=== PATIENT | female | born 1995 | race Caucasian/White ===

== ENCOUNTER 2016-06-14 16:41 | Emergency (ER) | payer SELFPAY ==
--- NOTE | 2016-06-14 18:03 | ER Document Report ---
ED Medical Screen (RME) - General Chief Complaint: Drug Abuse Stated Complaint: POSSIBLE DETOX Time seen by provider: 18:00 Mode of Arrival: Ambulatory Information source: Patient TRAVEL OUTSIDE OF THE [place] IN LAST 30 DAYS: No - HPI Patient complains to provider of: DETOX FROM XANAX Onset: Yesterday - LAST DOSE OF XANAX Onset/Duration: Sudden Quality of pain: No pain Severity: None Pain Level: Denies Associated Symptoms: None Exacerbated by: Denies Relieved by: Denies Similar symptoms previously: Yes Recently seen / treated by doctor: No - Related Data Smoking: Cigarettes Frequency of alcohol use: Occasional Drug Abuse: Marijuana Allergies/Adverse Reactions: No Known Allergies Allergy (Verified 06/14/16 17:32) Past Medical History - Social History Chew tobacco use (# tins/day): Yes Pulmonary Medical History: Denies: Hx Asthma, Hx Bronchitis, Hx COPD, Hx Pneumonia Neurological Medical History: Denies: Hx Cerebrovascular Accident, Hx Migraine, Hx Seizures Endocrine Medical History: Denies: Hx Diabetes Mellitus Type 1, Hx Diabetes Mellitus Type 2, Hx Graves' Disease Renal/ Medical History: Denies: Hx End Stage Renal Disease, Hx Kidney Stones, Hx Ovarian Cysts, Hx Peritoneal Dialysis, Hx Pelvic Inflammatory Disease Malignancy Medical History: Denies: Hx Breast Cancer, Hx Cervical Cancer, Hx Leukemia, Hx Liver Cancer, Hx Lung Cancer GI Medical History: Denies: Hx Diverticulitis, Hx Gastritis, Hx Gastroesophageal Reflux Disease, Hx Hepatitis, Hx Hiatal Hernia Musculoskeltal Medical History: Denies Hx Multiple Sclerosis, Denies Hx Muscle Weakness, Denies Hx Musculoskeletal Deformity Psychiatric Medical History: Denies: Hx Attention Deficit Hyperactivity Disorder, Hx Bipolar Disorder, Hx Borderline Personality Disorder, Hx Depression Infectious Medical History: Denies: Hx Hepatitis Past Surgical History: Reports: Hx Oral Surgery - wisdom, Hx Tonsillectomy - Immunizations Immunizations up to date: Yes Hx Diphtheria, Pertussis, Tetanus Vaccination: Yes Physical Exam - Vital signs Vitals: Temp Pulse Resp BP Pulse Ox 98.0 F 78 16 139/65 H 99 06/14/16 16:51 06/14/16 16:51 06/14/16 16:51 06/14/16 16:51 06/14/16 16:51 Course - Vital Signs Vital signs: Temp Pulse Resp BP Pulse Ox 98.0 F 78 16 139/65 H 99 06/14/16 16:51 06/14/16 16:51 06/14/16 16:51 06/14/16 16:51 06/14/16 16:51
[2016-06-14 18:32] LABS: ABSOLUTE EOSINOPHILS # (AUTO) 0.3 10^3/uL (0.0-0.6); ABSOLUTE LYMPHOCYTES (AUTO) 1.7 10^3/uL (0.5-4.7); ABSOLUTE MONOCYTES (AUTO) 0.8 10^3/uL (0.1-1.4); ABSOLUTE NEUT (AUTO) 4.9 10^3/uL (1.7-8.2); BASOPHILS % (AUTO) 0.3 % (0-2); EOSINOPHILS % (AUTO) 3.9 % (0-6); HEMATOCRIT 38.5 % (36.0-47.0); HGB HCT DIFFERENCE 0.5; LYMPHOCYTES % (AUTO) 22.5 % (13-45); MEAN CORPUSCULAR HEMOGLOBIN 27.3 pg (27.0-33.4); MEAN CORPUSCULAR HGB CONC 33.7 g/dL (32.0-36.0); MEAN CORPUSCULAR VOLUME 81 fl (80-97); MONOCYTES % (AUTO) 10.1 % (3-13); RED BLOOD COUNT 4.75 10^6/uL (3.72-5.28); RED CELL DISTRIBUTION WIDTH 15.1 % (11.5-14.0); SEGMENTED NEUTROPHILS % (AUTO) 63.2 % (42-78); WHITE BLOOD COUNT 7.7 10^3/uL (4.0-10.5)
[2016-06-14 18:59] LABS: ALANINE AMINOTRANSFERASE 39 U/L (9-52); ALBUMIN 4.2 g/dL (3.5-5.0); ALKALINE PHOSPHATASE 74 U/L (38-126); ANION GAP 11 (5-19); ASPARTATE AMINO TRANSFERASE 21 U/L (14-36); BILIRUBIN,TOTAL 0.8 mg/dL (0.2-1.3); BLOOD UREA NITROGEN 8 mg/dL (7-20); CALCIUM 9.5 mg/dL (8.4-10.2); CARBON DIOXIDE 27 mmol/L (22-30); CHLORIDE 104 mmol/L (98-107); CREATININE RESULT 0.74 mg/dL (0.52-1.25); GLUCOSE 83 mg/dL (75-110); POTASSIUM 3.9 mmol/L (3.6-5.0); SODIUM 142.1 mmol/L (137-145); TOTAL PROTEIN 7.5 g/dL (6.3-8.2)
[2016-06-14 19:01] LABS: ALCOHOL < 10 mg/dL (NONE DETECTED)
--- NOTE | 2016-06-14 19:34 | ER Document Report ---
ED Substance Abuse / Acc. OD - General Chief Complaint: Drug Abuse Stated Complaint: POSSIBLE DETOX Mode of Arrival: Ambulatory Notes: Patient says that she's been taking large regular doses of Xanax for the past year. During the past month she's been taking about 15 of the 2 mg Xanax daily. She wants to stop taking the Xanax and yesterday was the last that she has taken of the medication. She says that something happened that made her realize that she had to stop. Thus far, her only symptoms are being extremely emotional and labile and having shakes, but no loss of consciousness and no seizures.. Denies nausea or vomiting. Has had a couple of episodes of diarrhea. No shortness of breath and no chest pains. No fever but some chills. Patient is here with her mother and they have tried several detox locations and none of them have any beds, so they came to the emergency department. TRAVEL OUTSIDE OF THE [place] IN LAST 30 DAYS: No - Related Data Allergies/Adverse Reactions: No Known Allergies Allergy (Verified 06/14/16 17:32) Past Medical History - General Information source: Patient - Social History Smoking Status: Current Every Day Smoker Cigarette use (# per day): Yes Frequency of alcohol use: Occasional Drug Abuse: Marijuana Family History: Reviewed & Not Pertinent, Malignancy Patient has suicidal ideation: No Patient has homicidal ideation: No Past Surgical History: Reports: Hx Oral Surgery - wisdom, Hx Tonsillectomy - Immunizations Immunizations up to date: Yes Hx Diphtheria, Pertussis, Tetanus Vaccination: Yes Review of Systems - Review of Systems Notes: REVIEW OF SYSTEMS: CONSTITUTIONAL : Denies fever. EENT: Denies eye, ear, nose or mouth or throat pain or other symptoms. CARDIOVASCULAR: Denies chest pain. RESPIRATORY: Denies cough, chest congestion, or shortness of breath. GASTROINTESTINAL: Denies abdominal pain or nausea, vomiting, but has had a couple of stools of diarrhea. GENITOURINARY: Denies difficulty or painful urinating, urinary frequency, blood in urine. MUSCULOSKELETAL: Denies back or neck pain. Denies joint pain or swelling. SKIN: Denies rash or skin lesions. NEUROLOGICAL: Denies LOC or altered mental status. Denies headache. Denies sensory loss or motor deficits. Some shakes. ALL OTHER SYSTEMS REVIEWED AND NEGATIVE. Physical Exam - Vital signs Vitals: Temp Pulse Resp BP Pulse Ox 98.0 F 78 16 139/65 H 99 06/14/16 16:51 06/14/16 16:51 06/14/16 16:51 06/14/16 16:51 06/14/16 16:51 Interpretation: Normal - Notes Notes: PHYSICAL EXAMINATION: GENERAL: Well-appearing, in no acute distress. Only minimally anxious. Vital signs are all normal. HEAD: Atraumatic, normocephalic. EYES: Pupils equal round and reactive to light, extraocular movements intact. NECK: Normal range of motion, supple. LUNGS: Breath sounds clear and equal bilaterally. HEART: Regular rate and rhythm without murmurs. Not tachycardic. ABDOMEN: Soft, nontender. No guarding or rebound. BACK: No tenderness throughout entire back. EXTREMITIES: Normal range of motion without pain. NEUROLOGICAL: Normal speech, normal gait. Normal sensory, motor, and reflex exams. Awake, alert, and oriented x3. Cranial nerves normal. PSYCH: Normal mood, normal affect. SKIN: Warm, dry, no rashes. Course - Re-evaluation Re-evalutation: 06/14/16 20:38 Explained to the patient and her mother that we do not have facilities here to do detox and withdrawal. I called [facility] locally and it's closed and then call their central number in [place] and spoke with someone there who recommended that the patient or her mother called the [place] location tomorrow morning at 8 AM. I provided her with the telephone number and address for [facility] [employer] and advised them to call them at 8:00 tomorrow morning as some red may open up. - Vital Signs Vital signs: Temp Pulse Resp BP Pulse Ox 97.9 F 72 16 111/90 H 98 06/14/16 19:43 06/14/16 19:43 06/14/16 19:43 06/14/16 19:43 06/14/16 19:43 - Laboratory Result Diagrams: 06/14/16 18:16 06/14/16 18:16 Laboratory results interpreted by me: 06/14/16 06/14/16 18:16 18:16 RDW 15.1 H Salicylates < 1.0 L Acetaminophen < 10 L Discharge - Discharge Clinical Impression: Substance abuse Condition: Stable Disposition: HOME, SELF-CARE Additional Instructions: You are being seen today seeking detox for Xanax abuse. We do not have inpatient detox capability and beds at this facility. I have spoken to [facility] in [place] and they do not have any beds for detox tonight. They recommended that you call their local office here in [place] tomorrow morning at 8 AM, as there may be a bed open up tomorrow morning. Antihistamines An antihistamine has been prescribed to control your symptoms. Antihistamines are used for many reasons, including itching, watering eyes, runny nose, allergic swelling, hives, and insect stings. Antihistamines may cause drowsiness, especially with the first dose. Do not operate machinery or drive while under the effects of the medication. Other common side effects include dry mouth and eyes. In older persons, antihistamines can occasionally cause urinary retention, constipation, and trouble focusing the eyes. Do not combine the medication with alcohol, or with any other medication without talking to your doctor. Vistaril is in the category of antihistamine medications. It will sedate you somewhat and help you sleep and help with nausea, but it is not addicting and safe to take for any withdrawal symptoms you may have. FOLLOW-UP CARE: If you have been referred to a physician for follow-up care, call the physician s office for an appointment as you were instructed or within the next two days. If you experience worsening or a significant change in your symptoms, notify the physician immediately or return to the Emergency Department at any time for re-evaluation. The Phone Number for [facility] is and they are located at [address] [place] [address] in [place]. The telephone number for the [place] location for [facility] is [phone]. Prescriptions: Hydroxyzine Pamoate [Vistaril 50 mg Capsule] 50 mg PO QIDP PRN #30 capsule PRN Reason: Referrals: [facility] [Provider Group] - Follow up tomorrow
[2016-06-14 19:45] VITALS: BP 111/90
--- NOTE | 2016-06-15 15:49 | EKG REPORT ---
SEVERITY:- NORMAL ECG - SINUS RHYTHM : Confirmed by: Jeanmarie Pablo 15-Jun-2016 15:48:07
== END 2016-06-14 19:48 | disposition home or self-care (01) ==
LOC: ER 16:41
DX: F13.10 Sedative, hypnotic or anxiolytic abuse, uncomplicated (principal); R19.7 Diarrhea, unspecified; R68.83 Chills (without fever); F17.210 Nicotine dependence, cigarettes, uncomplicated; R29.818 Other symptoms and signs involving the nervous system
CPT/HCPCS: 36415; 80053; 80307; 84703; 85025; 93005; 93010; 99284

== ENCOUNTER 2016-06-28 16:23 | Emergency (ER) | payer SELFPAY ==
--- NOTE | 2016-06-28 16:32 | ER Document Report ---
ED Medical Screen (RME) - General Stated Complaint: POSSIBLE SEIZURE Mode of Arrival: Ambulatory Information source: Patient Notes: pt states she had 2 seizures at home today. Seizures were witnessed by boyfriend and happened at about 3 AM this morning [id number]. Patient complains of headache since then. Patient denies any nausea or vomiting. Patient denies any recent illness. No incontinence, tongue intact. hx: None I have greeted and performed a rapid initial assessment of this patient. A comprehensive ED assessment and evaluation of the patient, analysis of test results and completion of the medical decision making process will be conducted by additional ED providers. TRAVEL OUTSIDE OF THE [place] IN LAST 30 DAYS: No - Related Data Allergies/Adverse Reactions: No Known Allergies Allergy (Verified 06/28/16 16:30) Past Medical History Pulmonary Medical History: Denies: Hx Asthma, Hx Bronchitis, Hx COPD, Hx Pneumonia Neurological Medical History: Denies: Hx Cerebrovascular Accident, Hx Migraine, Hx Seizures Endocrine Medical History: Denies: Hx Diabetes Mellitus Type 1, Hx Diabetes Mellitus Type 2, Hx Graves' Disease Renal/ Medical History: Denies: Hx End Stage Renal Disease, Hx Kidney Stones, Hx Ovarian Cysts, Hx Peritoneal Dialysis, Hx Pelvic Inflammatory Disease Malignancy Medical History: Denies: Hx Breast Cancer, Hx Cervical Cancer, Hx Leukemia, Hx Liver Cancer, Hx Lung Cancer GI Medical History: Denies: Hx Diverticulitis, Hx Gastritis, Hx Gastroesophageal Reflux Disease, Hx Hepatitis, Hx Hiatal Hernia Musculoskeltal Medical History: Denies Hx Multiple Sclerosis, Denies Hx Muscle Weakness, Denies Hx Musculoskeletal Deformity Psychiatric Medical History: Denies: Hx Attention Deficit Hyperactivity Disorder, Hx Bipolar Disorder, Hx Borderline Personality Disorder, Hx Depression Infectious Medical History: Denies: Hx Hepatitis Past Surgical History: Reports: Hx Oral Surgery - wisdom, Hx Tonsillectomy - Immunizations Immunizations up to date: Yes Hx Diphtheria, Pertussis, Tetanus Vaccination: Yes Physical Exam - Vital signs Vitals: Temp Pulse Resp BP Pulse Ox 98.1 F 87 16 130/83 H 96 06/28/16 16:27 06/28/16 16:27 06/28/16 16:27 06/28/16 16:27 06/28/16 16:27 - Neurological Neuro grossly intact: Yes Cognition: Normal [place] Coma Scale Eye Opening: Spontaneous [place] Coma Scale Verbal: Oriented [place] Coma Scale Motor: Obeys Commands [place] Coma Scale Total: 15 Course - Vital Signs Vital signs: Temp Pulse Resp BP Pulse Ox 98.1 F 87 16 130/83 H 96 06/28/16 16:27 06/28/16 16:27 06/28/16 16:27 06/28/16 16:27 06/28/16 16:27
[2016-06-28 17:24] LABS: AMORPHOUS SEDIMENT,URINE TRACE /HPF; APPEARANCE,URINE CLOUDY; BILIRUBIN,URINE NEGATIVE (NEGATIVE); GLUCOSE, URINE NEGATIVE (NEGATIVE); KETONES,URINE NEGATIVE (NEGATIVE); LEUKOCYTE ESTERASE,URINE MODERATE (NEGATIVE); NITRITE,URINE NEGATIVE (NEGATIVE); PROTEIN,URINE 30 mg/dL (NEGATIVE); URINE SPECIFIC GRAVITY 1.025; UROBILINOGEN,URINE NEGATIVE mg/dL (<2.0)
[2016-06-28 17:34] LABS: ABSOLUTE EOSINOPHILS # (AUTO) 0.1 10^3/uL (0.0-0.6); ABSOLUTE LYMPHOCYTES (AUTO) 1.3 10^3/uL (0.5-4.7); ABSOLUTE MONOCYTES (AUTO) 0.6 10^3/uL (0.1-1.4); ABSOLUTE NEUT (AUTO) 3.8 10^3/uL (1.7-8.2); BASOPHILS % (AUTO) 0.3 % (0-2); EOSINOPHILS % (AUTO) 1.8 % (0-6); HEMATOCRIT 39.7 % (36.0-47.0); HEMOGLOBIN 12.6 g/dL (12.0-15.5); HGB HCT DIFFERENCE -1.9; LYMPHOCYTES % (AUTO) 22.6 % (13-45); MEAN CORPUSCULAR HEMOGLOBIN 26.8 pg (27.0-33.4); MEAN CORPUSCULAR HGB CONC 31.8 g/dL (32.0-36.0); MEAN CORPUSCULAR VOLUME 84 fl (80-97); MONOCYTES % (AUTO) 10.8 % (3-13); RED CELL DISTRIBUTION WIDTH 15.1 % (11.5-14.0); SEGMENTED NEUTROPHILS % (AUTO) 64.5 % (42-78); WHITE BLOOD COUNT 5.9 10^3/uL (4.0-10.5)
[2016-06-28 17:47] LABS: ALANINE AMINOTRANSFERASE 25 U/L (9-52); ALBUMIN 4.4 g/dL (3.5-5.0); ALKALINE PHOSPHATASE 63 U/L (38-126); ANION GAP 13 (5-19); ASPARTATE AMINO TRANSFERASE 19 U/L (14-36); BILIRUBIN,TOTAL 0.8 mg/dL (0.2-1.3); BLOOD UREA NITROGEN 11 mg/dL (7-20); CALCIUM 9.8 mg/dL (8.4-10.2); CARBON DIOXIDE 28 mmol/L (22-30); CHLORIDE 101 mmol/L (98-107); GLUCOSE 84 mg/dL (75-110); POTASSIUM 4.3 mmol/L (3.6-5.0); SODIUM 141.5 mmol/L (137-145); TOTAL PROTEIN 7.9 g/dL (6.3-8.2)
[2016-06-28 17:49] LABS: URINE BARBITURATES SCREEN NEGATIVE; URINE METHADONE SCREEN NEGATIVE; URINE PHENCYCLIDINE SCREEN NEGATIVE
--- NOTE | 2016-06-28 18:03 | ER Document Report ---
ED General - General Chief Complaint: Probable Seizure Stated Complaint: POSSIBLE SEIZURE Mode of Arrival: Ambulatory Information source: Patient Notes: 21-year-old female no previous seizure disorder history or family history seizures presents after 2 possible seizures last night. Patient notes this occurred around 3:57 AM when she was with her boyfriend ambulating and started to shake. Episode lasted a few seconds. Patient came back to and had a second such episode. Patient notes that she'll not eating for 20 hours when this occurred. Denies any complaints at this time Patient is noted to have stopped taking benzos 14 days ago due to previous abuse TRAVEL OUTSIDE OF THE [place] IN LAST 30 DAYS: No - HPI Onset: Yesterday Onset/Duration: Sudden Quality of pain: Achy Severity: Mild Pain Level: 1 Associated symptoms: Headache Exacerbated by: Denies Relieved by: Denies Similar symptoms previously: No Recently seen / treated by doctor: No - Related Data Allergies/Adverse Reactions: No Known Allergies Allergy (Verified 06/28/16 16:30) Past Medical History - General Information source: Patient - Social History Smoking Status: Never Smoker Cigarette use (# per day): No Chew tobacco use (# tins/day): No Smoking Education Provided: No Frequency of alcohol use: None Drug Abuse: None Family History: Reviewed & Not Pertinent, Malignancy Patient has suicidal ideation: No Patient has homicidal ideation: No Pulmonary Medical History: Denies: Hx Asthma, Hx Bronchitis, Hx COPD, Hx Pneumonia Neurological Medical History: Denies: Hx Cerebrovascular Accident, Hx Migraine, Hx Seizures Endocrine Medical History: Denies: Hx Diabetes Mellitus Type 1, Hx Diabetes Mellitus Type 2, Hx Graves' Disease Renal/ Medical History: Denies: Hx End Stage Renal Disease, Hx Kidney Stones, Hx Ovarian Cysts, Hx Peritoneal Dialysis, Hx Pelvic Inflammatory Disease Malignancy Medical History: Denies: Hx Breast Cancer, Hx Cervical Cancer, Hx Leukemia, Hx Liver Cancer, Hx Lung Cancer GI Medical History: Denies: Hx Diverticulitis, Hx Gastritis, Hx Gastroesophageal Reflux Disease, Hx Hepatitis, Hx Hiatal Hernia Musculoskeltal Medical History: Denies Hx Multiple Sclerosis, Denies Hx Muscle Weakness, Denies Hx Musculoskeletal Deformity Psychiatric Medical History: Denies: Hx Attention Deficit Hyperactivity Disorder, Hx Bipolar Disorder, Hx Borderline Personality Disorder, Hx Depression Infectious Medical History: Denies: Hx Hepatitis Past Surgical History: Reports: Hx Oral Surgery - wisdom, Hx Tonsillectomy - Immunizations Immunizations up to date: Yes Hx Diphtheria, Pertussis, Tetanus Vaccination: Yes Review of Systems - Review of Systems Notes: REVIEW OF SYSTEMS: CONSTITUTIONAL : Denies fever, chills, or sweats. Denies recent illness. EENT: Denies eye, ear, throat, or mouth pain or symptoms. Denies nasal or sinus congestion or discharge. Denies throat, tongue, or mouth swelling or difficulty swallowing. CARDIOVASCULAR: Denies chest pain. Denies palpitations or racing or irregular heart beat. Denies ankle edema. RESPIRATORY: Denies cough, cold, or chest congestion. Denies shortness of breath, difficulty breathing, or wheezing. GASTROINTESTINAL: Denies abdominal pain or distention. Denies nausea, vomiting , or diarrhea. Denies blood in vomitus, stools, or per rectum. Denies black, tarry stools. Denies constipation. GENITOURINARY: Denies difficulty urinating, painful urination, burning, frequency, blood in urine, or discharge. FEMALE GENITOURINARY: Denies vaginal bleeding, heavy or abnormal periods, irregular periods. Denies vaginal discharge or odor. MUSCULOSKELETAL: Denies back or neck pain or stiffness. Denies joint pain or swelling. SKIN: Denies rash, lesions or sores. HEMATOLOGIC : Denies easy bruising or bleeding. LYMPHATIC: Denies swollen, enlarged glands. NEUROLOGICAL: Admits to seizure like episode headache at that time which resolved PSYCHIATRIC: Denies anxiety or stress. Denies depression, suicidal ideation, or homicidal ideation. ALL OTHER SYSTEMS REVIEWED AND NEGATIVE. Dictation was performed using [employer] voice recognition software PHYSICAL EXAMINATION: GENERAL: Well-appearing, well-nourished and in no acute distress. HEAD: Atraumatic, normocephalic. EYES: Pupils equal round and reactive to light, extraocular movements intact, conjunctiva are normal. ENT: Nares patent, oropharynx clear without exudates. Moist mucous membranes. NECK: Normal range of motion, supple without lymphadenopathy LUNGS: Breath sounds clear to auscultation bilaterally and equal. No wheezes rales or rhonchi. HEART: Regular rate and rhythm without murmurs ABDOMEN: Soft, nontender, nondistended abdomen. No guarding, no rebound. No masses appreciated. Female : deferred Musculoskeletal: Normal range of motion, no pitting or edema. No cyanosis. NEUROLOGICAL: Cranial nerves grossly intact. Normal speech, normal gait. Normal sensory, motor exams PSYCH: Normal mood, normal affect. SKIN: Warm, Dry, normal turgor, no rashes or lesions noted. Physical Exam - Vital signs Vitals: Temp Pulse Resp BP Pulse Ox 98.1 F 87 16 130/83 H 96 06/28/16 16:27 06/28/16 16:27 06/28/16 16:27 06/28/16 16:27 06/28/16 16:27 Course - Re-evaluation Re-evalutation: 06/28/16 18:58 Patient was physical examination notes no significant abnormality, lab work notes no significant abnormality either. CT of the head was performed which was negative. Patient looks well and I believe her complaints are secondary to hypoglycemia given her complaints however I do have very long conversation regarding possible new onset seizures follow-up with neurologist as well as the possibility of benzo withdrawal causing the seizures. However given that it's been 2 weeks do not expect this to be a actual issue After performing a Medical Screening Examination, I estimate there is LOW risk for INTRACRANIAL HEMORRHAGE, ISCHEMIC CVA, MALIGNANT DYSRHYTHMIA, ACUTE CORONARY SYNDROME, MENINGITIS, PULMONARY EMBOLISM, or SEPSIS thus I consider the discharge disposition reasonable. The patient and I have discussed the diagnosis and risks, and we agree with discharging home with close follow-up with the understanding that symptoms and presentations can change. We also discussed returning to the Emergency Department immediately if new or worsening symptoms occur. We have discussed the symptoms which are most concerning (e.g., changing or worsening pain, weakness, vomiting, fever) that necessitate immediate return. - Vital Signs Vital signs: Temp Pulse Resp BP Pulse Ox 98.1 F 66 20 116/63 99 06/28/16 18:06 06/28/16 18:06 06/28/16 18:06 06/28/16 18:06 06/28/16 18:06 - Laboratory Result Diagrams: 06/28/16 17:00 06/28/16 17:00 Laboratory results interpreted by me: 06/28/16 06/28/16 17:00 17:00 MCH 26.8 L MCHC 31.8 L RDW 15.1 H Urine Protein 30 H Ur Leukocyte Esterase MODERATE H - Diagnostic Test Radiology reviewed: Image reviewed, Reports reviewed Discharge - Discharge Clinical Impression: Seizure-like activity Condition: Stable Disposition: HOME, SELF-CARE Additional Instructions: Seizure You have had a seizure. Seizure disorders (epilepsy) of one sort or another affect about one out of 50 people. The seizure occurs because of abnormal electrical activity in the brain. Seizures may be due to drugs and alcohol, strokes, brain injury, or infection. In the most common form of epilepsy, no cause can be found. You will require further evaluation to determine the cause of your seizure, and to determine whether anti-seizure medication is required. This follow-up testing is important, so please call us if you encounter problems with scheduling of tests or appointments. YOU SHOULD NOT DRIVE until released to do so by your physician. The law requires that seizures be reported to the sales route driver's license bureau--a seizure while driving could be catastrophic. Call the doctor if seizures recur, or if you develop new symptoms such as fever, severe headache, stiff neck, confusion or increasing sleepiness, weakness or numbness, or visual problems. Referrals: SHIRLEY VEGA MD [ACTIVE STAFF] - Follow up tomorrow
[2016-06-28 18:08] VITALS: BP 116/63
--- NOTE | 2016-06-28 18:38 | EKG REPORT ---
SEVERITY:- BORDERLINE ECG - SINUS RHYTHM BORDERLINE T ABNORMALITIES, ANTERIOR LEADS : Confirmed by: Abel Salas MD 28-Jun-2016 18:37:37
== END 2016-06-28 18:08 | disposition home or self-care (01) ==
LOC: ER 16:23
DX: R56.9 Unspecified convulsions (principal)
CPT/HCPCS: 36415; 70450; 80053; 80307; 81001; 81025; 85025; 93005; 93010; 99285

== ENCOUNTER 2016-08-21 17:38 | Emergency (ER) | payer SELFPAY ==
--- NOTE | 2016-08-21 17:55 | ER Document Report ---
ED Medical Screen (RME) - General Stated Complaint: ABDOMINAL PAIN/HEADACHE Mode of Arrival: Ambulatory Information source: Patient Notes: She presents emergency department with complaints of abdominal pain epigastric area that started this morning. She reports she's been vomiting since yesterday. LMP 08/16/16 Also c/o stone, took ibuprofen without relief. I have greeted and performed a rapid initial assessment of this patient. A comprehensive ED assessment and evaluation of the patient, analysis of test results and completion of the medical decision making process will be conducted by additional ED providers. TRAVEL OUTSIDE OF THE [place] IN LAST 30 DAYS: No - Related Data Allergies/Adverse Reactions: No Known Allergies Allergy (Verified 08/21/16 17:54) Past Medical History Pulmonary Medical History: Denies: Hx Asthma, Hx Bronchitis, Hx COPD, Hx Pneumonia Neurological Medical History: Denies: Hx Cerebrovascular Accident, Hx Migraine, Hx Seizures Endocrine Medical History: Denies: Hx Diabetes Mellitus Type 1, Hx Diabetes Mellitus Type 2, Hx Graves' Disease Renal/ Medical History: Denies: Hx End Stage Renal Disease, Hx Kidney Stones, Hx Ovarian Cysts, Hx Peritoneal Dialysis, Hx Pelvic Inflammatory Disease Malignancy Medical History: Denies: Hx Breast Cancer, Hx Cervical Cancer, Hx Leukemia, Hx Liver Cancer, Hx Lung Cancer GI Medical History: Denies: Hx Diverticulitis, Hx Gastritis, Hx Gastroesophageal Reflux Disease, Hx Hepatitis, Hx Hiatal Hernia Musculoskeltal Medical History: Denies Hx Multiple Sclerosis, Denies Hx Muscle Weakness, Denies Hx Musculoskeletal Deformity Psychiatric Medical History: Denies: Hx Attention Deficit Hyperactivity Disorder, Hx Bipolar Disorder, Hx Borderline Personality Disorder, Hx Depression Infectious Medical History: Denies: Hx Hepatitis Past Surgical History: Reports: Hx Oral Surgery - wisdom, Hx Tonsillectomy - Immunizations Immunizations up to date: Yes Hx Diphtheria, Pertussis, Tetanus Vaccination: Yes Physical Exam - Vital signs Vitals: Temp Pulse Resp BP Pulse Ox 98.1 F 71 16 130/49 H 98 08/21/16 17:50 08/21/16 17:50 08/21/16 17:50 08/21/16 17:50 08/21/16 17:50 Course - Vital Signs Vital signs: Temp Pulse Resp BP Pulse Ox 98.1 F 71 16 130/49 H 98 08/21/16 17:50 08/21/16 17:50 08/21/16 17:50 08/21/16 17:50 08/21/16 17:50
[2016-08-21 18:19] LABS: ABSOLUTE EOSINOPHILS # (AUTO) 0.5 10^3/uL (0.0-0.6); ABSOLUTE LYMPHOCYTES (AUTO) 2.1 10^3/uL (0.5-4.7); ABSOLUTE MONOCYTES (AUTO) 0.9 10^3/uL (0.1-1.4); ABSOLUTE NEUT (AUTO) 4.9 10^3/uL (1.7-8.2); BASOPHILS % (AUTO) 0.3 % (0-2); EOSINOPHILS % (AUTO) 5.8 % (0-6); HEMOGLOBIN 12.3 g/dL (12.0-15.5); HGB HCT DIFFERENCE -0.1; LYMPHOCYTES % (AUTO) 24.9 % (13-45); MEAN CORPUSCULAR HEMOGLOBIN 27.3 pg (27.0-33.4); MEAN CORPUSCULAR HGB CONC 33.1 g/dL (32.0-36.0); MEAN CORPUSCULAR VOLUME 83 fl (80-97); RED BLOOD COUNT 4.49 10^6/uL (3.72-5.28); RED CELL DISTRIBUTION WIDTH 13.8 % (11.5-14.0); WHITE BLOOD COUNT 8.5 10^3/uL (4.0-10.5)
[2016-08-21 18:24] LABS: APPEARANCE,URINE CLOUDY; BILIRUBIN,URINE NEGATIVE (NEGATIVE); GLUCOSE, URINE NEGATIVE (NEGATIVE); KETONES,URINE NEGATIVE (NEGATIVE); LEUKOCYTE ESTERASE,URINE LARGE (NEGATIVE); NITRITE,URINE NEGATIVE (NEGATIVE); PROTEIN,URINE NEGATIVE (NEGATIVE); URINE SPECIFIC GRAVITY 1.032; UROBILINOGEN,URINE NEGATIVE mg/dL (<2.0)
[2016-08-21 18:37] LABS: ALANINE AMINOTRANSFERASE 52 U/L (9-52); ALBUMIN 4.4 g/dL (3.5-5.0); ALKALINE PHOSPHATASE 68 U/L (38-126); ANION GAP 12 (5-19); ASPARTATE AMINO TRANSFERASE 25 U/L (14-36); BILIRUBIN,TOTAL 0.4 mg/dL (0.2-1.3); BLOOD UREA NITROGEN 19 mg/dL (7-20); CALCIUM 9.7 mg/dL (8.4-10.2); CARBON DIOXIDE 26 mmol/L (22-30); CHLORIDE 107 mmol/L (98-107); GLUCOSE 88 mg/dL (75-110); LIPASE 126.3 U/L (23-300); POTASSIUM 4.2 mmol/L (3.6-5.0); SODIUM 144.5 mmol/L (137-145); TOTAL PROTEIN 7.5 g/dL (6.3-8.2)
--- NOTE | 2016-08-21 19:39 | ER Document Report ---
ED GI/ - General Chief Complaint: Abdominal Pain Stated Complaint: ABDOMINAL PAIN/HEADACHE Mode of Arrival: Ambulatory Information source: Patient Notes: This is a 21-year-old previously healthy female who presents to the ER for evaluation of abdominal pain. She reports the onset of crampy upper abdominal pain worse in the right upper quadrant at about 1 PM today. She has had no nausea or vomiting today however she did have vomiting yesterday and the last emesis was at 4 AM this morning. She denies any diarrhea. She did have a normal bowel movement today. She has not had fever or chills. Her last oral intake was at 2 PM today at which time she ate some pizza. She states this made her upper abdominal pain much worse. She has never had upper abdominal pain like this in the past. Currently she is tolerating water by mouth and states that she is feeling better. She does not currently have a primary care physician. TRAVEL OUTSIDE OF THE [place] IN LAST 30 DAYS: No - Related Data Allergies/Adverse Reactions: No Known Allergies Allergy (Verified 08/21/16 17:54) Past Medical History - General Information source: Patient - Social History Smoking Status: Current Every Day Smoker Chew tobacco use (# tins/day): No Frequency of alcohol use: None Drug Abuse: None Family History: Reviewed & Not Pertinent, Malignancy - Past Medical History Cardiac Medical History: Reports: None Pulmonary Medical History: Reports: None Denies: Hx Asthma, Hx Bronchitis, Hx COPD, Hx Pneumonia Neurological Medical History: Denies: Hx Cerebrovascular Accident, Hx Migraine, Hx Seizures Endocrine Medical History: Denies: Hx Diabetes Mellitus Type 1, Hx Diabetes Mellitus Type 2, Hx Graves' Disease Renal/ Medical History: Denies: Hx End Stage Renal Disease, Hx Kidney Stones, Hx Ovarian Cysts, Hx Peritoneal Dialysis, Hx Pelvic Inflammatory Disease Malignancy Medical History: Denies: Hx Breast Cancer, Hx Cervical Cancer, Hx Leukemia, Hx Liver Cancer, Hx Lung Cancer GI Medical History: Reports: None. Denies: Hx Diverticulitis, Hx Gastritis, Hx Gastroesophageal Reflux Disease, Hx Hepatitis, Hx Hiatal Hernia Musculoskeltal Medical History: Denies Hx Multiple Sclerosis, Denies Hx Muscle Weakness, Denies Hx Musculoskeletal Deformity Psychiatric Medical History: Denies: Hx Attention Deficit Hyperactivity Disorder, Hx Bipolar Disorder, Hx Borderline Personality Disorder, Hx Depression Infectious Medical History: Denies: Hx Hepatitis Past Surgical History: Reports: Hx Oral Surgery - wisdom, Hx Tonsillectomy - Immunizations Immunizations up to date: Yes Hx Diphtheria, Pertussis, Tetanus Vaccination: Yes Review of Systems - Review of Systems Notes: REVIEW OF SYSTEMS: CONSTITUTIONAL : Denies fever, chills, or sweats. Denies recent illness. EENT: Denies eye, ear, throat, or mouth pain or symptoms. Denies nasal or sinus congestion. CARDIOVASCULAR: Denies chest pain. RESPIRATORY: Denies cough, cold, or chest congestion. Denies shortness of breath, difficulty breathing, or wheezing. GASTROINTESTINAL: As per history of present illness GENITOURINARY: Denies difficulty urinating, painful urination, burning, frequency, or blood in urine. FEMALE GENITOURINARY: Denies vaginal bleeding, abnormal or irregular periods. LMP: 08/16/16 MUSCULOSKELETAL: Denies neck or back pain or joint pain or swelling. SKIN: Denies rash or skin lesions. HEMATOLOGIC : Denies easy bruising or bleeding. LYMPHATIC: Denies swollen, enlarged glands. NEUROLOGICAL: Denies altered mental status or loss of consciousness. Denies headache. PSYCHIATRIC: Denies anxiety or stress or depression. ALL OTHER SYSTEMS REVIEWED AND NEGATIVE. Physical Exam - Vital signs Vitals: Temp Pulse Resp BP Pulse Ox 98.1 F 71 16 130/49 H 98 08/21/16 17:50 08/21/16 17:50 08/21/16 17:50 08/21/16 17:50 08/21/16 17:50 - Notes Notes: PHYSICAL EXAMINATION: GENERAL: Well-appearing, obese female who is pleasant and conversant and in no acute distress. HEAD: Atraumatic, normocephalic. EYES: Pupils equal round and reactive to light, extraocular movements intact, sclera anicteric, conjunctiva are normal. ENT: nares patent, oropharynx clear without exudates. Moist mucous membranes. NECK: Normal range of motion, supple without lymphadenopathy LUNGS: Breath sounds clear to auscultation bilaterally and equal. No wheezes rales or rhonchi. HEART: Regular rate and rhythm without murmurs ABDOMEN: Soft, normoactive bowel sounds. Mild epigastric tenderness to palpation. Tenderness to palpation in the right upper quadrant without guarding or rebound. No masses appreciated. EXTREMITIES: Normal range of motion NEUROLOGICAL: Cranial nerves grossly intact. No gross focal motor or sensory deficits appreciated. PSYCH: Normal mood, normal affect. SKIN: Warm, Dry, normal turgor, no rashes or lesions noted. Course - Re-evaluation Re-evalutation: 08/21/16 19:45 Patient's exam and history consistent with possible biliary colic. She has a nonsurgical exam and her laboratory evaluation is reassuring. We will obtain a right upper quadrant ultrasound to assess for gallstones. 08/21/16 21:[address] Elam who agrees with outpatient management and will follow-up in the office. Discussed findings of gallstones with the patient and discuss dietary modification and symptomatic control. She will follow-up with the surgeon as an outpatient. Should return precautions to include fevers, worsening pain or persistent vomiting or discussed. All questions were answered. - Vital Signs Vital signs: Temp Pulse Resp BP Pulse Ox 98.1 F 71 16 130/49 H 98 08/21/16 17:50 08/21/16 17:50 08/21/16 17:50 08/21/16 17:50 08/21/16 17:50 - Laboratory Result Diagrams: 08/21/16 18:00 08/21/16 18:00 Laboratory results interpreted by me: 08/21/16 18:00 Urine Blood MODERATE H Ur Leukocyte Esterase LARGE H Discharge - Discharge Clinical Impression: Symptomatic cholelithiasis Condition: Stable Disposition: HOME, SELF-CARE Additional Instructions: GALLBLADDER DISEASE: Your evaluation shows evidence of gallbladder disease. The gallbladder is a pouch under the liver which stores bile. Stones, infection, or irritation of the gallbladder cause attacks of pain. Certain foods -- fats in particular -- may provoke attacks. The usual treatment for gallbladder disease is surgical removal of the gallbladder -- called a cholecystectomy. You will be referred to a physician qualified to advise you on the best treatment for your problem. Hospitalization is not necessary. Take clear liquids only until you are painfree. After that, you should stay on a low-fat diet, with frequent SMALL meals. Call the doctor or return at once if you develop severe pain, repeated vomiting, fever, or jaundice (a yellow color in the skin and whites of the eyes) . URINARY TRACT INFECTION: Your evaluation indicates that you have a urinary tract infection. This is due to germs growing in the bladder. This is a common problem. This infection usually responds quickly to antibiotics. Your antibiotic should be taken exactly as prescribed. Drink plenty of fluids -- three to four quarts a day. Occasionally, a bladder anesthetic will be prescribed to help stop the feeling of urgency until the antibiotic has a chance to clear the infection. This may cause your urine to be dark orange. Certain urine infections require a culture. If the doctor obtained a culture, the results will be back in two days. You should call to see if a change in treatment is needed. A repeat urinalysis after you finish treatment is often recommended. The physician will let you know if further testing is required. Call the doctor if you develop fever, chills, flank pain, inability to urinate, or blood in the urine. LOW-FAT DIET: The physician has recommended a low-fat diet. This diet is often used for gallbladder or pancreas problems. Your meals should be high-carbohydrate (potato, apples, noodles, breads, vegetables). Eat fish or skinless chicken (boiled or baked rather than fried) for protein. Beans and peas are good sources of fat-free protein. Soups are usually very low-fat. Don't eat anything fried. Avoid red meats. Avoid most dairy products. Skim milk and non-fat yogurt are OK. Most popular cheeses are very high-fat. Don't add butter or sauces -- use lemon or pepper instead. If you like salads, use one of the new "non-fat" dressings. "Fast Food" is "fat food." There is virtually nothing from a typical fast- food restaurant that you can eat. Fish patties and chicken nuggets are almost always deep-fat fried. "Special Sauces" are mostly fat. ANTINAUSEA MEDICATION: You have been given a medication to suppress nausea and vomiting. This type of medication can be given as a shot, pill, or suppository. It will usually last for many hours. Pills and shots usually last six to eight hours, suppositories last about 12 hours. For the typical illness, only one or two doses of the medication may be necessary. Mild lightheadedness may occur. This type of medicine can cause drowsiness. Do not drive or operate dangerous machinery while under its influence. Do not mix with alcohol. See your doctor at once if you have muscle spasms or tightness, or uncontrollable motions (particularly of the neck, mouth, or jaw). Persistent vomiting or severe lightheadedness should also be evaluated by the physician. ANTIBIOTIC THERAPY: You have been given an antibiotic prescription. It's important that you take all the medication, unless instructed otherwise by your physician. Failure to complete the entire course can result in relapse of your condition. Common side effects of antibiotics include nausea, intestinal cramping, or diarrhea. Women may develop vaginal yeast infections, and babies can get yeast (thrush) in the mouth following the use of antibiotics. Contact your physician if you develop significant side effects from this medication. Allergy to this antibiotic can result in hives, wheezing, faintness, or itching. If symptoms of allergy occur, stop the medication and call the doctor. LEVOFLOXACIN: You have been given an antibacterial agent, levofloxacin (Levaquin). This medicine is not related to the penicillins, sulfas, cephalosporins, or tetracyclines. It is often given to patients who are allergic to these drugs. It has been chosen for you either because other drugs are not appropriate, or because of the nature of your problem. Levaquin should not be taken with antacids, as these can decrease its effectiveness. It can be taken without regard to meals. LEVAQUIN SHOULD NOT BE TAKEN BY CHILDREN, NURSING WOMEN, OR WOMEN. Although Levaquin is usually well-tolerated, common side effects can include nausea and diarrhea. Contact your doctor if you experience any unusual symptoms while on this medication, such as joint pain or swelling, shortness of breath, wheezing, faintness, or hives. ORAL NARCOTIC MEDICATION: You have been given a prescription for pain control. This medication is a narcotic. It's best taken with food, as nausea can result if taken on an empty stomach. Don't operate machinery or drive within six hours of taking this medication. Do not combine this medicine with alcohol, or with any medication which can cause sedation (such as cold tablets or sleeping pills) unless you get permission from the physician. Narcotics tend to cause constipation. If possible, drink plenty of fluids and eat a diet high in fiber and fruits. Please be aware that prescription narcotics also have the potential for abuse. People become addicted to these medications because of the general sense of wellbeing that they induce. This feeling along with a significant reduction in tension, anxiety, and aggression provides a stimulating seductive quality to these drugs. Once your pain is under control, we encourage you to discard your unused narcotics. FOLLOW-UP CARE: If you have been referred to a physician for follow-up care, call the physician s office for an appointment as you were instructed or within the next two days. If you experience worsening or a significant change in your symptoms, notify the physician immediately or return to the Emergency Department at any time for re-evaluation. Prescriptions: Hydrocodone/Acetaminophen [Lortab 5-325 mg Tablet] 1 each PO Q6H #15 tablet Levofloxacin [Levaquin 750 mg Tablet] 750 mg PO DAILY #5 tablet Promethazine HCl [Phenergan 25 mg Tablet] 1 tab PO Q6H PRN #15 tablet PRN Reason: Referrals: SYED ELAM MD [[facility]] - 08/23/16 (symptomatic cholelithiasis)
[2016-08-21 21:40] VITALS: BP 128/89
== END 2016-08-21 21:39 | disposition home or self-care (01) ==
LOC: ER 17:38
DX: K80.20 Calculus of gallbladder without cholecystitis without obstruction (principal); F17.200 Nicotine dependence, unspecified, uncomplicated; E66.9 Obesity, unspecified; Z68.37 Body mass index [BMI] 37.0-37.9, adult
CPT/HCPCS: 36415; 76705; 80053; 81001; 83690; 84703; 85025; 99284

== ENCOUNTER 2016-09-06 12:40 | Emergency (ER) | payer SELFPAY | END 2016-09-06 13:20 | disposition left against medical advice (07) | LOC: ER 12:40 | DX: Z53.9 Procedure and treatment not carried out, unspecified reason (principal); R52 Pain, unspecified ==

== ENCOUNTER 2017-01-19 21:43 | Emergency (ER) | payer SELFPAY | END 2017-01-19 22:15 | disposition left against medical advice (07) | LOC: ER 21:43 | DX: Z53.21 Procedure and treatment not carried out due to patient leaving prior to being seen by health care provider (principal) ==

== ENCOUNTER 2017-02-27 23:59 | Emergency (ER) | payer SELFPAY ==
[2017-02-28] MEDS ORDERED: PROMETHAZINE HCL 25 MG TABLET PO ONE (02:15)
--- NOTE | 2017-02-28 02:15 | ER Document Report ---
ED GI/ - General Chief Complaint: Nausea/Vomiting/Diarrhea Stated Complaint: VOMITING,ABDOMINAL PAIN Time Seen by Provider: 02/28/17 02:07 Notes: Patient is a 22 year old female that comes to the ED for chief complaint of lower abdominal pain and vomiting. She reports symptoms TRAVEL OUTSIDE OF THE [place] IN LAST 30 DAYS: No - Related Data Allergies/Adverse Reactions: No Known Allergies Allergy (Verified 08/21/16 17:54) Past Medical History - General Information source: Patient - Social History Smoking Status: Never Smoker Frequency of alcohol use: None Drug Abuse: None Lives with: Family Family History: Reviewed & Not Pertinent, Malignancy Patient has suicidal ideation: No Patient has homicidal ideation: No Pulmonary Medical History: Denies: Hx Asthma, Hx Bronchitis, Hx COPD, Hx Pneumonia Neurological Medical History: Denies: Hx Cerebrovascular Accident, Hx Migraine, Hx Seizures Endocrine Medical History: Denies: Hx Diabetes Mellitus Type 1, Hx Diabetes Mellitus Type 2, Hx Graves' Disease Renal/ Medical History: Denies: Hx End Stage Renal Disease, Hx Kidney Stones, Hx Ovarian Cysts, Hx Peritoneal Dialysis, Hx Pelvic Inflammatory Disease Malignancy Medical History: Denies: Hx Breast Cancer, Hx Cervical Cancer, Hx Leukemia, Hx Liver Cancer, Hx Lung Cancer GI Medical History: Denies: Hx Diverticulitis, Hx Gastritis, Hx Gastroesophageal Reflux Disease, Hx Hepatitis, Hx Hiatal Hernia Musculoskeltal Medical History: Denies Hx Multiple Sclerosis, Denies Hx Muscle Weakness, Denies Hx Musculoskeletal Deformity Psychiatric Medical History: Denies: Hx Attention Deficit Hyperactivity Disorder, Hx Bipolar Disorder, Hx Borderline Personality Disorder, Hx Depression Infectious Medical History: Denies: Hx Hepatitis Past Surgical History: Reports: Hx Oral Surgery - wisdom, Hx Tonsillectomy - Immunizations Immunizations up to date: Yes Hx Diphtheria, Pertussis, Tetanus Vaccination: Yes Review of Systems - Review of Systems Constitutional: No symptoms reported EENT: No symptoms reported Cardiovascular: No symptoms reported Respiratory: No symptoms reported Gastrointestinal: See HPI Genitourinary: See HPI Female Genitourinary: See HPI Musculoskeletal: No symptoms reported Skin: No symptoms reported Hematologic/Lymphatic: No symptoms reported Neurological/Psychological: No symptoms reported Physical Exam - Vital signs Vitals: Temp Pulse Resp BP Pulse Ox 97.4 F 74 17 136/76 H 98 02/28/17 00:01 02/28/17 00:01 02/28/17 00:01 02/28/17 00:01 02/28/17 00:01 Interpretation: Normal - General General appearance: Appears well, Alert In distress: None - HEENT Head: Normocephalic, Atraumatic Eyes: Normal Conjunctiva: Normal Extraocular movements intact: Yes Eyelashes: Normal Pupils: PERRL Nasal: Normal Mouth/Lips: Normal Mucous membranes: Normal Pharynx: Normal Neck: Normal - Respiratory Respiratory status: No respiratory distress Chest status: Nontender Breath sounds: Normal Chest palpation: Normal - Cardiovascular Rhythm: Regular. No: Tachycardia Heart sounds: Normal auscultation, S1 appreciated, S2 appreciated Murmur: No - Abdominal Inspection: Normal Distension: No distension Bowel sounds: Normal Tenderness: Tender - Mild abdominal tenderness in the lower/pelvic region bilaterally, nonspecific, no guarding Organomegaly: No organomegaly - Genitourinary External exam: Normal Speculum exam: Normal, Vaginal discharge - Scant whitish vaginal discharge. No : Cervix open Vaginal bleeding: None Bimanuel exam: No: Cervical motion tender - Back Back: Normal, Nontender. No: Tender, CVA tenderness - Extremities General upper extremity: Normal inspection, Nontender, Normal color, Normal ROM , Normal temperature General lower extremity: Normal inspection, Nontender, Normal color, Normal ROM , Normal temperature, Normal weight bearing. No: Lola's sign - Neurological Neuro grossly intact: Yes Cognition: Normal Orientation: AAOx4 [place] Coma Scale Eye Opening: Spontaneous Mikel Coma Scale Verbal: Oriented Mikel Coma Scale Motor: Obeys Commands Mikel Coma Scale Total: 15 Speech: Normal Motor strength normal: LUE, RUE, LLE, RLE Sensory: Normal - Psychological Associated symptoms: Normal affect, Normal mood - Skin Skin Temperature: Warm Skin Moisture: Dry Skin Color: Normal Course - Re-evaluation Re-evalutation: CBC, chemistry, urinalysis unremarkable. Patient does have some discharge on examination, no overt cervical motion tenderness, mild generalized tenderness of the pelvic area on exam. I do suspect this is pelvic in nature. Discussed with patient. Patient will be treated now, she will be contacted with any additional results, will be treated for potential pelvic infection and bacterial vaginosis. Discussed follow-up and return precautions. Patient states understanding and agreement. 02/28/17 07:33 Called and spoke with patient, informed her that she tested positive for gonorrhea, informed her that her partner also needs to be treated and they should avoid intercourse until they both had been treated and a week had passed in treatment for both. Patient states understanding and gratefulness of the information. - Vital Signs Vital signs: Temp Pulse Resp BP Pulse Ox 97.9 F 58 L 18 115/59 L 98 02/28/17 04:07 02/28/17 04:07 02/28/17 04:07 02/28/17 04:07 02/28/17 04:07 - Laboratory Result Diagrams: 02/28/17 02:35 02/28/17 02:35 Laboratory results interpreted by me: 02/28/17 02/28/17 02/28/17 02:30 02:35 02:50 RDW 14.3 H Urine Blood MODERATE H N.gonorrhoeae DNA (PCR) DETECTED H Discharge - Discharge Clinical Impression: Pelvic pain, Nausea Condition: Stable Disposition: HOME, SELF-CARE Additional Instructions: Your workup and examination indicated a pelvic source of your pain. You have been treated for a pelvic infection, take the Flagyl as prescribed for bacterial vaginosis in addition to this. Take the Zofran if needed for nausea. Follow-up with primary care. Return to the emergency department for any concerning or worsening symptoms including fever, vomiting, worsening pain, or any other concerning symptoms. Prescriptions: Metronidazole [Flagyl 500 mg Tablet] 500 mg PO BID #14 tablet Forms: Treatment of Relative/Child
[2017-02-28 02:42] LABS: APPEARANCE,URINE SLIGHTLY-CLOUDY; BILIRUBIN,URINE NEGATIVE (NEGATIVE); GLUCOSE, URINE NEGATIVE (NEGATIVE); KETONES,URINE NEGATIVE (NEGATIVE); LEUKOCYTE ESTERASE,URINE NEGATIVE (NEGATIVE); NITRITE,URINE NEGATIVE (NEGATIVE); PROTEIN,URINE NEGATIVE (NEGATIVE); UROBILINOGEN,URINE NEGATIVE mg/dL (<2.0)
[2017-02-28 02:56] LABS: ABSOLUTE EOSINOPHILS # (AUTO) 0.4 10^3/uL (0.0-0.6); ABSOLUTE LYMPHOCYTES (AUTO) 2.4 10^3/uL (0.5-4.7); BASOPHILS % (AUTO) 0.3 % (0-2); EOSINOPHILS % (AUTO) 4.8 % (0-6); HEMATOCRIT 40.1 % (36.0-47.0); HEMOGLOBIN 13.5 g/dL (12.0-15.5); HGB HCT DIFFERENCE 0.4; LYMPHOCYTES % (AUTO) 27.5 % (13-45); MEAN CORPUSCULAR HEMOGLOBIN 28.1 pg (27.0-33.4); MEAN CORPUSCULAR HGB CONC 33.7 g/dL (32.0-36.0); MEAN CORPUSCULAR VOLUME 83 fl (80-97); RED BLOOD COUNT 4.82 10^6/uL (3.72-5.28); RED CELL DISTRIBUTION WIDTH 14.3 % (11.5-14.0); SEGMENTED NEUTROPHILS % (AUTO) 56.4 % (42-78); WHITE BLOOD COUNT 8.9 10^3/uL (4.0-10.5)
[2017-02-28 03:07] LABS: ALANINE AMINOTRANSFERASE 30 U/L (9-52); ALBUMIN 4.4 g/dL (3.5-5.0); ALKALINE PHOSPHATASE 58 U/L (38-126); ANION GAP 9 (5-19); ASPARTATE AMINO TRANSFERASE 22 U/L (14-36); BILIRUBIN,DIRECT 0.3 mg/dL (0.0-0.4); BILIRUBIN,TOTAL 0.4 mg/dL (0.2-1.3); BLOOD UREA NITROGEN 15 mg/dL (7-20); CALCIUM 10.1 mg/dL (8.4-10.2); CARBON DIOXIDE 26 mmol/L (22-30); CHLORIDE 107 mmol/L (98-107); CREATININE RESULT 0.84 mg/dL (0.52-1.25); GLUCOSE 86 mg/dL (75-110); POTASSIUM 4.2 mmol/L (3.6-5.0); SODIUM 141.8 mmol/L (137-145); TOTAL PROTEIN 7.2 g/dL (6.3-8.2)
[2017-02-28] MEDS ORDERED: CEFTRIAXONE INJ 250 MG VIAL IM ONE (03:49)
[2017-02-28] MEDS ORDERED: LIDOCAINE 1% INJ-PF (10 MG/ML) 30 ML SDV INJ ONE (03:49)
[2017-02-28] MEDS ORDERED: AZITHROMYCIN 250 MG TABLET PO ONE (03:49)
[2017-02-28] MEDS ORDERED: ONDANSETRON ODT 4 MG TAB (6 TAB/DSPK) PO PRN (03:50)
[2017-02-28] MEDS ORDERED: METRONIDAZOLE 500 MG TABLET PO ONE (03:50)
[2017-02-28 04:08] VITALS: BP 115/59
[2017-02-28 04:30] LABS: CHLAM PCR NOT DETECTED (NOT DETECT)
== END 2017-02-28 04:22 | disposition home or self-care (01) ==
LOC: ER 23:59
DX: A54.9 Gonococcal infection, unspecified (principal); R10.2 Pelvic and perineal pain; R11.2 Nausea with vomiting, unspecified
CPT/HCPCS: 99284; 96372; 36415; 87210; 85025; 81025; 80053; 81001; 87491; 87591; J3490; J0696

== ENCOUNTER 2017-07-04 18:22 | Emergency (ER) | payer SELFPAY ==
[2017-07-04] MEDS ORDERED: MORPHINE SULFATE IR 15 MG TABLET PO ONE (22:23)
--- NOTE | 2017-07-04 22:29 | ER Document Report ---
ED Animal Bite - General Chief Complaint: Dog Bite Stated Complaint: DOG BITE Time Seen by Provider: 07/04/17 22:23 Mode of Arrival: Ambulatory Information source: Patient TRAVEL OUTSIDE OF THE [place] IN LAST 30 DAYS: No - HPI Location of injury: LLE - pain, puncture wound Severity of injury: Bitten Onset: Just prior to arrival Where did incident occur: at her aunt's neighborhood Quality of pain: Burning Pain Level: 2 Severity: Moderate Context of attack: Other - pt was at her aunt's house when the dog came over and bit then ran. Type of animal: Dog Appearance of animal: Appeared well Breed and color: ?mut Animal's immunizations: Unknown Animal captured or known: No Animal control notified: No Notes: Patient is a 22-year-old female no significant past medical history. Patient states that the dog bit down her left leg and then ran off after she had it in the head. Patient and spouse state that the dog did appear well and very clean. They believe that it is a neighbor of their aunt's. Patient still able to ambulate, but does have pain to the leg. She denies any drug allergies. Patient states that she did have a tetanus less than a month ago. No other concerns or complaints. Denies any headache, fever, URI, sore throat, chest pain, palpitations, syncope, cough, shortness of breath, wheeze, dyspnea, abdominal pain, nausea/vomiting/diarrhea, urinary retention, dysuria, hematuria , loss of control of bowel or bladder, numbness/tingling, muscle paralysis/ weakness, or rash. - Related Data Allergies/Adverse Reactions: No Known Allergies Allergy (Verified 08/21/16 17:54) Past Medical History - Social History Smoking Status: Former Smoker Chew tobacco use (# tins/day): No Frequency of alcohol use: None Drug Abuse: None Family History: Reviewed & Not Pertinent, Malignancy Patient has suicidal ideation: No Patient has homicidal ideation: No Pulmonary Medical History: Denies: Hx Asthma, Hx Bronchitis, Hx COPD, Hx Pneumonia Neurological Medical History: Denies: Hx Cerebrovascular Accident, Hx Migraine, Hx Seizures Endocrine Medical History: Denies: Hx Diabetes Mellitus Type 1, Hx Diabetes Mellitus Type 2, Hx Graves' Disease Renal/ Medical History: Denies: Hx End Stage Renal Disease, Hx Kidney Stones, Hx Ovarian Cysts, Hx Peritoneal Dialysis, Hx Pelvic Inflammatory Disease Malignancy Medical History: Denies: Hx Breast Cancer, Hx Cervical Cancer, Hx Leukemia, Hx Liver Cancer, Hx Lung Cancer GI Medical History: Denies: Hx Diverticulitis, Hx Gastritis, Hx Gastroesophageal Reflux Disease, Hx Hepatitis, Hx Hiatal Hernia Musculoskeltal Medical History: Denies Hx Multiple Sclerosis, Denies Hx Muscle Weakness, Denies Hx Musculoskeletal Deformity Psychiatric Medical History: Denies: Hx Attention Deficit Hyperactivity Disorder, Hx Bipolar Disorder, Hx Borderline Personality Disorder, Hx Depression Infectious Medical History: Denies: Hx Hepatitis Past Surgical History: Reports: Hx Oral Surgery - wisdom, Hx Tonsillectomy - Immunizations Immunizations up to date: Yes Hx Diphtheria, Pertussis, Tetanus Vaccination: Yes Review of Systems - Review of Systems Notes: REVIEW OF SYSTEMS: CONSTITUTIONAL : Denies fever, chills, or sweats. Denies recent illness. EENT: Denies eye, ear, throat, or mouth pain or symptoms. Denies nasal or sinus congestion or discharge. Denies throat, tongue, or mouth swelling or difficulty swallowing. CARDIOVASCULAR: Denies chest pain. Denies palpitations or racing or irregular heart beat. Denies ankle edema. RESPIRATORY: Denies cough, cold, or chest congestion. Denies shortness of breath, difficulty breathing, or wheezing. GASTROINTESTINAL: Denies abdominal pain or distention. Denies nausea, vomiting , or diarrhea. GENITOURINARY: Denies difficulty urinating, painful urination, burning, frequency, blood in urine, or discharge. MUSCULOSKELETAL: see hpi SKIN: see hpi NEUROLOGICAL: Denies confusion or altered mental status. Denies passing out or loss of consciousness. Denies dizziness or lightheadedness. Denies headache. Denies weakness or paralysis or loss of use of either side. Denies problems with gait or speech. Denies sensory loss, numbness, or tingling. Denies seizures. ALL OTHER SYSTEMS REVIEWED AND NEGATIVE. Dictation was performed using [employer] voice recognition software Physical Exam - Vital signs Vitals: Temp Pulse Resp BP Pulse Ox 98.4 F 86 18 132/66 H 100 07/04/17 18:42 07/04/17 18:42 07/04/17 18:42 07/04/17 18:42 07/04/17 18:42 Notes: PHYSICAL EXAMINATION: GENERAL: Well-appearing, well-nourished and in no acute distress. LUNGS: Breath sounds clear to auscultation bilaterally and equal. No wheezes rales or rhonchi. HEART: Regular rate and rhythm without murmurs, rubs, gallops. Musculoskeletal: Left LE: FROM to passive/active. Strength 5+/5. + 1.5x1cm puncture avulsion to the left lateral calf. The wound appears to be missing that area of skin, does not appear to be lacerated. No obvious foreign body appreciated. N/V intact distal. No bony tenderness. Compartments soft. Extremities: No cyanosis, clubbing, or edema b/l. Peripheral pulses 2+. Capillary refill less than 3 seconds. NEUROLOGICAL: Normal speech, limping gait. Normal sensory, motor exams PSYCH: Normal mood, normal affect. SKIN: Warm, Dry, normal turgor, no rashes or lesions noted. Course - Re-evaluation Re-evalutation: 07/04/17 23:25 Patient is an afebrile, well-hydrated, 22-year-old female who presents to the ED with a dog bite to the left lateral calf. Vitals are stable. PE is otherwise unremarkable for any neurovascular compress, obvious tendon/ligament rupture, obvious fracture/dislocation, compartment syndrome, retained foreign body. X-ray was unremarkable for any acute pathology. Wound dressing was placed. Wound edges were not able to be approximated as this is more of an avulsion puncture versus a lacerated puncture. The wound overall appears superficial. Wound dressing was placed and wound instructions reviewed. Tetanus is already up-to-date. Patient and spouse believes that they will be able to locate the dog at the neighbor's house and ask about immunization status and potential monitoring over the next 10 days. I thoroughly reviewed the risks and benefits of rabies and the immunoglobulin treatment including potentially keenan rabies and thereafter. Patient does not have insurance at this time. Patient is aware that this could be a very expensive procedure. Patient and spouse declined the immunoglobulin and rabies at this time and they will pursue the ulnar and check immunization status and monitoring. Patient is aware that she can return for treatment at any point. I will send her home with a prescription for Augmentin to take as directed. Conservative measures otherwise for symptoms. Recheck with your PCM in 3-5 days. Return to the ED with any worsening/concerning symptoms otherwise as reviewed discharge. Patient is in agreement. - Vital Signs Vital signs: Temp Pulse Resp BP Pulse Ox 98.4 F 86 18 132/66 H 100 07/04/17 18:42 07/04/17 18:42 07/04/17 18:42 07/04/17 18:42 07/04/17 18:42 Discharge - Discharge Clinical Impression: Dog bite Qualifiers: Encounter type: initial encounter Qualified Code(s): W54.0XXA - Bitten by dog, initial encounter Condition: Stable Disposition: HOME, SELF-CARE Instructions: Animal Bites ([facility]), Antibiotic Ointment Protection ([facility]), Augmentin ([facility]) Additional Instructions: Keep the skin clean Wash with soap and water Tylenol/ibuprofen if needed Triple antibiotic ointment daily Take medication as directed Monitor for any worsening symptoms Recheck with your PCM in 3-5 days Return to the ED with any worsening symptoms and/or development of fever, headache, chest pain, palpitations, syncope, shortness of breath, trouble breathing, abdominal pain, n/v/d, abscess, purulent discharge, red streaks, worsening swelling, or other worsening symptoms that are concerning to you. Prescriptions: Amox Tr/Potassium Clavulanate [Augmentin 875-125 Tablet] 1 tab PO BID 10 Days # 20 tablet Forms: Elevated Blood Pressure Referrals: YUKI BYRD MD [ACTIVE STAFF] - Follow up as needed
--- NOTE | 2017-07-04 22:55 | RADIOLOGY REPORT (SQ) ---
EXAM DESCRIPTION: TIBIA FIBULA LEFT COMPLETED DATE/TIME: 07/04/2017 10:46 pm REASON FOR STUDY: dog bite lateral leg COMPARISON: None. NUMBER OF VIEWS: Two views. TECHNIQUE: Two radiographic images acquired of the left tibia and fibula to include the knee and ank le in at least one projection. LIMITATIONS: None. FINDINGS: MINERALIZATION: Normal. BONES: No acute fracture or dislocation. No worrisome bone lesions. SOFT TISSUES: Lateral soft tissue swelling -laceration. No radiopaque foreign body. OTHER: No other significant finding. IMPRESSION: No fracture or radiopaque foreign body.Lateral soft tissue swelling -laceration. TECHNICAL DOCUMENTATION: JOB ID: [id number] [place]-[id number] 2010 [email or web address]- All Rights Reserved
[2017-07-04 23:44] VITALS: BP 116/61
== END 2017-07-04 23:45 | disposition home or self-care (01) ==
LOC: ER 18:22
DX: S81.852A Open bite, left lower leg, initial encounter (principal); W54.0XXA Bitten by dog, initial encounter; Y92.009 Unspecified place in unspecified non-institutional (private) residence as the place of occurrence of the external cause; Z87.891 Personal history of nicotine dependence
CPT/HCPCS: 99283

== ENCOUNTER 2017-11-02 16:33 | Emergency (ER) | payer SELFPAY ==
[2017-11-02 16:59] VITALS: BP 118/73
--- NOTE | 2017-11-02 17:24 | ER Document Report ---
HPI - HPI Patient complains to provider of: Sore throat Onset: Other - 3 days Onset/Duration: Persistent Quality of pain: Achy Pain Level: 3 Context: Patient presents complaining of sore throat for the past 3 days. Patient states she chronically has ear pain for the past 5-6 months although has not seen an ENT doctor. Patient denies any fever. Patient denies any drainage from her ears. Associated Symptoms: Earache, Sore throat. denies: Fever, Shortness of breath Exacerbated by: Denies Relieved by: Denies Similar symptoms previously: Yes Recently seen / treated by doctor: No - ROS ROS below otherwise negative: Yes Systems Reviewed and Negative: Yes All other systems reviewed and negative - CONSTITUTIONAL Constitutional: DENIES: Fever, Chills - EENT EENT: REPORTS: Sore Throat, Ear Pain - right - CARDIOVASCULAR Cardiovascular: DENIES: Chest pain - RESPIRATORY Respiratory: REPORTS: Coughing. DENIES: Trouble Breathing - GASTROINTESTINAL Gastrointestinal: DENIES: Patient vomiting - REPRODUCTIVE Reproductive: DENIES: : - DERM Skin Color: Normal Skin Problems: None Past Medical History - General Information source: Patient - Social History Smoking Status: Current Every Day Smoker Smoking Education Provided: Yes Frequency of alcohol use: Social Drug Abuse: Marijuana Occupation: Foodservice Lives with: Spouse/Significant other Family History: Reviewed & Not Pertinent, Malignancy Patient has suicidal ideation: No Patient has homicidal ideation: No - Medical History Medical History: Negative Pulmonary Medical History: Denies: Hx Asthma, Hx Bronchitis, Hx COPD, Hx Pneumonia Neurological Medical History: Denies: Hx Cerebrovascular Accident, Hx Migraine, Hx Seizures Endocrine Medical History: Denies: Hx Diabetes Mellitus Type 1, Hx Diabetes Mellitus Type 2, Hx Graves' Disease Renal/ Medical History: Denies: Hx End Stage Renal Disease, Hx Kidney Stones, Hx Ovarian Cysts, Hx Peritoneal Dialysis, Hx Pelvic Inflammatory Disease Malignancy Medical History: Denies: Hx Breast Cancer, Hx Cervical Cancer, Hx Leukemia, Hx Liver Cancer, Hx Lung Cancer GI Medical History: Denies: Hx Diverticulitis, Hx Gastritis, Hx Gastroesophageal Reflux Disease, Hx Hepatitis, Hx Hiatal Hernia Musculoskeltal Medical History: Denies Hx Multiple Sclerosis, Denies Hx Muscle Weakness, Denies Hx Musculoskeletal Deformity Psychiatric Medical History: Denies: Hx Attention Deficit Hyperactivity Disorder, Hx Bipolar Disorder, Hx Borderline Personality Disorder, Hx Depression Infectious Medical History: Denies: Hx Hepatitis Past Surgical History: Reports: Hx Oral Surgery - wisdom, Hx Tonsillectomy - Immunizations Immunizations up to date: Yes Hx Diphtheria, Pertussis, Tetanus Vaccination: Yes Vertical Provider Document - CONSTITUTIONAL Agree With Documented VS: Yes Exam Limitations: No Limitations General Appearance: WD/WN, No Apparent Distress - INFECTION CONTROL TRAVEL OUTSIDE OF THE [place] IN LAST 30 DAYS: No - HEENT HEENT: Atraumatic, Normocephalic, Pharyngeal Tenderness. negative: Pharyngeal Exudate, Pharyngeal Erythema, Tympanic Membrane Red, Tympanic Membrane Bulging Notes: No dental decay or caries, no mastoid tenderness or swelling - NECK Neck: Normal Inspection, Supple. negative: Lymphadenopathy-Left, Lymphadenopathy-Right - RESPIRATORY Respiratory: Breath Sounds Normal, No Respiratory Distress - CARDIOVASCULAR Cardiovascular: Regular Rate, Regular Rhythm - BACK Back: Normal Inspection - MUSCULOSKELETAL/EXTREMETIES Musculoskeletal/Extremeties: MAEW - NEURO Level of Consciousness: Awake, Alert, Appropriate Motor/Sensory: No Motor Deficit - DERM Integumentary: Warm, Dry, No Rash Course - Re-evaluation Re-evalutation: 11/02/17 18:13 Patient nontoxic in appearance. No potential airway compromise. Rapid strep test negative. Will run throat culture. Patient without any findings concerning for otitis media, externa, serous effusion, or mastoiditis. Patient encouraged to follow-up with research scholar for further evaluation. - Vital Signs Vital signs: Temp Pulse Resp BP Pulse Ox 98.1 F 71 17 118/73 100 11/02/17 16:56 11/02/17 16:56 11/02/17 16:56 11/02/17 16:56 11/02/17 16:56 - Laboratory Laboratory results interpreted by me: 11/02/17 18:13 Labs- Entire Visit 11/02/17 17:20 Group A Strep Rapid NEGATIVE Discharge - Discharge Clinical Impression: Sore throat, Otalgia of both ears Condition: Stable Disposition: HOME, SELF-CARE Instructions: Sore Throat ([facility]) Additional Instructions: Return immediately for any new or worsening symptoms Followup with your primary care provider, call tomorrow to make a followup appointment Follow-up with research scholar for further evaluation, call tomorrow for an appointment Prescriptions: Naproxen [Naprosyn 250 Nmg Tablet] 1 tab PO BID #14 tablet Forms: Smoking Cessation Education, Return to Work Referrals: [facility] [Provider Group] - Follow up in 3-5 days
== END 2017-11-02 18:23 | disposition home or self-care (01) ==
LOC: ER 16:33
DX: J02.9 Acute pharyngitis, unspecified (principal); H92.03 Otalgia, bilateral; F17.200 Nicotine dependence, unspecified, uncomplicated
CPT/HCPCS: 87070; 87880; 99283

== ENCOUNTER 2018-01-18 14:39 | Emergency (ER) | payer MEDICAID ==
--- NOTE | 2018-01-18 16:31 | ER Document Report ---
ED General - General TRAVEL OUTSIDE OF THE [place] IN LAST 30 DAYS: No <THELMA MARAVILLA - Last Filed: 01/18/18 16:29> <CHRIS PINZON - Last Filed: 01/18/18 19:50> - General Stated Complaint: BACK PAIN Time Seen by Provider: 01/18/18 16:29 - HPI Notes: Patient is a 22-year-old female currently reports she is 6-7 weeks presents with report that she feels somewhat dehydrated from nausea and vomiting and reports mild lower back pain. She denies any vaginal bleeding or discharge. The patient reports her last menstrual period was in September and she was but had a miscarriage on November 29 and received a RhoGam shot on 11/28. The patient states she was trying not to get again but ended up . The patient denies any fever or chills. She reports nausea associated with . No diarrhea. No abdominal pain. No chest pain or cough. (CHRIS PINZON) - Related Data Allergies/Adverse Reactions: No Known Allergies Allergy (Verified 01/18/18 14:41) Past Medical History - Social History Smoking Status: Former Smoker Chew tobacco use (# tins/day): No Frequency of alcohol use: None Drug Abuse: Marijuana Family History: Reviewed & Not Pertinent, Malignancy Patient has suicidal ideation: No Patient has homicidal ideation: No Pulmonary Medical History: Denies: Hx Asthma, Hx Bronchitis, Hx COPD, Hx Pneumonia Neurological Medical History: Denies: Hx Cerebrovascular Accident, Hx Migraine, Hx Seizures Endocrine Medical History: Denies: Hx Diabetes Mellitus Type 1, Hx Diabetes Mellitus Type 2, Hx Graves' Disease Renal/ Medical History: Denies: Hx End Stage Renal Disease, Hx Kidney Stones, Hx Ovarian Cysts, Hx Peritoneal Dialysis, Hx Pelvic Inflammatory Disease Malignancy Medical History: Denies: Hx Breast Cancer, Hx Cervical Cancer, Hx Leukemia, Hx Liver Cancer, Hx Lung Cancer GI Medical History: Denies: Hx Diverticulitis, Hx Gastritis, Hx Gastroesophageal Reflux Disease, Hx Hepatitis, Hx Hiatal Hernia Musculoskeletal Medical History: Denies Hx Multiple Sclerosis, Denies Hx Muscle Weakness, Denies Hx Musculoskeletal Deformity Psychiatric Medical History: Denies: Hx Attention Deficit Hyperactivity Disorder, Hx Bipolar Disorder, Hx Borderline Personality Disorder, Hx Depression Infectious Medical History: Denies: Hx Hepatitis Past Surgical History: Reports: Hx Oral Surgery - wisdom, Hx Tonsillectomy - Immunizations Immunizations up to date: Yes Hx Diphtheria, Pertussis, Tetanus Vaccination: Yes <HARLAN MARAVILLAIC María - Last Filed: 01/18/18 16:29> - General Information source: Patient <CHRIS PINZON - Last Filed: 01/18/18 19:50> Review of Systems <TAIWOTHELMA - Last Filed: 01/18/18 16:29> <JEROMYCHRIS - Last Filed: 01/18/18 19:50> - Review of Systems Notes: REVIEW OF SYSTEMS: CONSTITUTIONAL : Denies fever, chills, or sweats. Denies recent illness. EENT: Denies eye, ear, throat, or mouth pain or symptoms. Denies nasal or sinus congestion or discharge. Denies throat, tongue, or mouth swelling or difficulty swallowing. CARDIOVASCULAR: Denies chest pain. Denies palpitations or racing or irregular heart beat. Denies ankle edema. RESPIRATORY: Denies cough, cold, or chest congestion. Denies shortness of breath, difficulty breathing, or wheezing. GASTROINTESTINAL: Denies abdominal pain or distention. Denies diarrhea. Denies blood in vomitus, stools, or per rectum. Denies black, tarry stools. Denies constipation. GENITOURINARY: Denies difficulty urinating, painful urination, burning, frequency, blood in urine, or discharge. FEMALE GENITOURINARY: Denies vaginal bleeding, heavy or abnormal periods, irregular periods. Denies vaginal discharge or odor. MUSCULOSKELETAL: Denies neck pain or stiffness. Denies joint pain or swelling. SKIN: Denies rash, lesions or sores. HEMATOLOGIC : Denies easy bruising or bleeding. LYMPHATIC: Denies swollen, enlarged glands. NEUROLOGICAL: Denies confusion or altered mental status. Denies passing out or loss of consciousness. Denies dizziness or lightheadedness. Denies headache. Denies weakness or paralysis or loss of use of either side. Denies problems with gait or speech. Denies sensory loss, numbness, or tingling. Denies seizures. PSYCHIATRIC: Denies anxiety or stress. Denies depression, suicidal ideation, or homicidal ideation. ALL OTHER SYSTEMS REVIEWED AND NEGATIVE. Dictation was performed using [employer] voice recognition software (CHRIS PINZON ) Physical Exam <THELMA MARAVILLA - Last Filed: 01/18/18 16:29> <CHRIS PINZON - Last Filed: 01/18/18 19:50> - Vital signs Vitals: Temp Pulse Resp BP Pulse Ox 97.9 F 68 18 121/72 99 01/18/18 14:51 01/18/18 14:51 01/18/18 14:51 01/18/18 14:51 01/18/18 14:51 - Notes Notes: PHYSICAL EXAMINATION: GENERAL: Well-appearing, well-nourished and in no acute distress. HEAD: Atraumatic, normocephalic. EYES: Pupils equal round and reactive to light, extraocular movements intact, conjunctiva are normal. ENT: Nares patent, oropharynx clear without exudates. Moist mucous membranes. NECK: Normal range of motion, supple without lymphadenopathy LUNGS: Breath sounds clear to auscultation bilaterally and equal. No wheezes rales or rhonchi. HEART: Regular rate and rhythm without murmurs ABDOMEN: Soft, nontender, nondistended abdomen. No guarding, no rebound. No masses appreciated. Female : deferred Musculoskeletal: Normal range of motion, no pitting or edema. No cyanosis. Patient reports mild pain posterior lower back, but not reproducible, no pain over the CVA region. No lumbar spine pain. No crepitance or bony deformity. NEUROLOGICAL: Cranial nerves grossly intact. Normal speech, normal gait. Normal sensory, motor exams PSYCH: Normal mood, normal affect. SKIN: Warm, Dry, normal turgor, no rashes or lesions noted. (CHRIS PINZON) Course <THELMA MARAVILLA - Last Filed: 01/18/18 16:29> <CHRIS PINZON - Last Filed: 01/18/18 19:50> - Re-evaluation Re-evalutation: 01/18/18 19:37 Patient was given Zofran by mouth. She tolerated p.o. fluids. Discussion was undertaken with Dr. James, OB, who advised follow-up in 1 week in her clinic and return to the ED in case of any vaginal bleeding for repeat RhoGam shot, but the RhoGam should be good to cover for 12 weeks from the last RhoGam injection from 11/28/17. 01/18/18 19:38 No evidence for ectopic or severe dehydration or UTI or miscarriage in process. (CHRIS PINZON) - Vital Signs Vital signs: Temp Pulse Resp BP Pulse Ox 98.6 F 84 18 120/64 100 01/18/18 18:33 01/18/18 18:33 01/18/18 14:51 01/18/18 18:33 01/18/18 18:33 - Laboratory Laboratory results interpreted by me: 01/18/18 01/18/18 16:15 17:22 Beta HCG, Quant 019574.00 H Urine Protein 30 H Urine Ketones 20 H Urine Urobilinogen 2.0 H Urine Ascorbic Acid 40 H Discharge <THELMA MARAVILLA - Last Filed: 01/18/18 16:29> <CHRIS PINZON - Last Filed: 01/18/18 19:50> - Discharge Clinical Impression: Dehydration, Hyperemesis gravidarum Subchorionic hematoma in first trimester Qualifiers: Fetus number: single or unspecified fetus Qualified Code(s): O41.8X10 - Other specified disorders of amniotic fluid and membranes, first trimester, not applicable or unspecified; O46.8X1 - Other antepartum hemorrhage, first trimester; O46.8X1 - Other antepartum hemorrhage, first trimester Rh negative status during Qualifiers: Trimester: first trimester Qualified Code(s): O09.891 - Supervision of other high risk pregnancies, first trimester; Z67.91 - Unspecified blood type, Rh negative; Z67.91 - Unspecified blood type, Rh negative Condition: Stable Disposition: HOME, SELF-CARE Instructions: Antinausea Medication ([facility]), Hyperemesis Gravidarum ([facility]), Dehydration ([facility]) Additional Instructions: You need a follow-up ultrasound in 7-10 days with the [employer] [facility]ACH[facility] because you are Rh negative and have a small subchorionic bleed associated with your 6 week 2 day . Drink plenty of fluids. Return to the emergency department in case of fever, vaginal bleeding or severe pain. Prescriptions: Ondansetron [Zofran Odt 4 mg Tablet] 1 tab PO Q8HP PRN #15 tab.rapdis PRN Reason: For Nausea/Vomiting
[2018-01-18 17:13] LABS: APPEARANCE,URINE SLIGHTLY-CLOUDY; BILIRUBIN,URINE NEGATIVE (NEGATIVE); GLUCOSE, URINE NEGATIVE (NEGATIVE); KETONES,URINE 20 mg/dL (NEGATIVE); LEUKOCYTE ESTERASE,URINE NEGATIVE (NEGATIVE); NITRITE,URINE NEGATIVE (NEGATIVE); PROTEIN,URINE 30 mg/dL (NEGATIVE); URINE SPECIFIC GRAVITY 1.033
[2018-01-18 17:15] LABS: COLOR,URINE YELLOW
--- NOTE | 2018-01-18 18:42 | RADIOLOGY REPORT (SQ) ---
EXAM DESCRIPTION: U/S OB TRANSVAGINAL W/O DOP COMPLETED DATE/TIME: 01/18/2018 6:21 pm REASON FOR STUDY: + preg and back pain miscarriage 11/28/2017 COMPARISON: None. TECHNIQUE: Transvaginal static and realtime grayscale images acquired of the pelvis. Additional francisco cted spectral and color Doppler images recorded. All images stored on PACs. [facility] Not available. CLINICAL DATES: LMP 09/10/2017 LIMITATIONS: None. FINDINGS: FETUS: Living intrauterine . ULTRASOUND EGA: 6 weeks 2 days ULTRASOUND JUSTUS: 09/11/2018 CRL: 0.53 cm FHR: 120 beats per minute. SUBCHORIONIC BLEED: Yes SIZE OF BLEED: 10 x 5 x 7 mm UTERUS: No masses or anomalies. 9 x 4.9 x 5.6 cm. CERVICAL LENGTH: 3.7 cm. There is a nabothian cyst. Closed. RIGHT ADNEXA: Normal ovary with normal vascular flow. 5.2 x 4.1 x 3.4 cm. There is a 2.6 x 2.5 x 2. 8 cm cyst. No adnexal free fluid. No adnexal masses. LEFT ADNEXA: Ovary not seen. No adnexal free fluid. No adnexal masses. FREE FLUID: Small amount of fluid in the posterior cul-de-sac. OTHER: No other significant finding. IMPRESSION: LIVING INTRAUTERINE . EGA 6 weeks 2 days. Findings as described. Trimester of : First - 0 to 13 weeks. TECHNICAL DOCUMENTATION: JOB ID: [id number] [employer]- All Rights Reserved rev Reading location - IP/workstation name: [email or web address]
[2018-01-18] MEDS ORDERED: ONDANSETRON 4 MG TAB.RAPDIS PO ONE (19:14)
[2018-01-18 20:50] VITALS: BP 122/77
== END 2018-01-18 20:50 | disposition home or self-care (01) ==
LOC: ER 14:39
DX: O26.91 Pregnancy related conditions, unspecified, first trimester (principal); M54.9 Dorsalgia, unspecified; O21.1 Hyperemesis gravidarum with metabolic disturbance; E86.0 Dehydration; O41.8X10 Other specified disorders of amniotic fluid and membranes, first trimester, not applicable or unspecified; O09.891 Supervision of other high risk pregnancies, first trimester; Z67.91 Unspecified blood type, Rh negative; Z3A.01 Less than 8 weeks gestation of pregnancy; Z87.891 Personal history of nicotine dependence
CPT/HCPCS: 99284; 36415; 84702; 81001; 76817; S0119

== ENCOUNTER 2018-01-27 05:20 | Emergency (ER) | payer MEDICAID ==
--- NOTE | 2018-01-27 05:41 | ER Document Report ---
ED Medical Screen (RME) - General Chief Complaint: Vag Bleeding, +preg <12wks Stated Complaint: VAGINAL BLEEDING Time Seen by Provider: 01/27/18 05:36 Notes: 22-year-old female, at 7 weeks gestation by first trimester ultrasound, chief complaint of vaginal bleeding that started last night. No pain. No injury. TRAVEL OUTSIDE OF THE [place] IN LAST 30 DAYS: No - Related Data Allergies/Adverse Reactions: No Known Allergies Allergy (Verified 01/18/18 14:41) Past Medical History Pulmonary Medical History: Denies: Hx Asthma, Hx Bronchitis, Hx COPD, Hx Pneumonia Neurological Medical History: Denies: Hx Cerebrovascular Accident, Hx Migraine, Hx Seizures Endocrine Medical History: Denies: Hx Diabetes Mellitus Type 1, Hx Diabetes Mellitus Type 2, Hx Graves' Disease Renal/ Medical History: Denies: Hx End Stage Renal Disease, Hx Kidney Stones, Hx Ovarian Cysts, Hx Peritoneal Dialysis, Hx Pelvic Inflammatory Disease Malignancy Medical History: Denies: Hx Breast Cancer, Hx Cervical Cancer, Hx Leukemia, Hx Liver Cancer, Hx Lung Cancer GI Medical History: Denies: Hx Diverticulitis, Hx Gastritis, Hx Gastroesophageal Reflux Disease, Hx Hepatitis, Hx Hiatal Hernia Musculoskeltal Medical History: Denies Hx Multiple Sclerosis, Denies Hx Muscle Weakness, Denies Hx Musculoskeletal Deformity Psychiatric Medical History: Denies: Hx Attention Deficit Hyperactivity Disorder, Hx Bipolar Disorder, Hx Borderline Personality Disorder, Hx Depression Infectious Medical History: Denies: Hx Hepatitis Past Surgical History: Reports: Hx Oral Surgery - wisdom, Hx Tonsillectomy - Immunizations Immunizations up to date: Yes Hx Diphtheria, Pertussis, Tetanus Vaccination: Yes Physical Exam - Vital signs Vitals: Temp Pulse Resp BP Pulse Ox 98.5 F 80 18 121/62 99 01/27/18 05:28 01/27/18 05:28 01/27/18 05:28 01/27/18 05:28 01/27/18 05:28 - Abdominal Inspection: Normal Tenderness: Nontender. No: Tender, Guarding Course - Vital Signs Vital signs: Temp Pulse Resp BP Pulse Ox 98.5 F 80 18 121/62 99 01/27/18 05:28 01/27/18 05:28 01/27/18 05:28 01/27/18 05:28 01/27/18 05:28
[2018-01-27 05:59] LABS: ABSOLUTE EOSINOPHILS # (AUTO) 0.6 10^3/uL (0.0-0.6); ABSOLUTE LYMPHOCYTES (AUTO) 2.5 10^3/uL (0.5-4.7); ABSOLUTE NEUT (AUTO) 6.6 10^3/uL (1.7-8.2); BASOPHILS % (AUTO) 0.3 % (0-2); EOSINOPHILS % (AUTO) 5.2 % (0-6); HEMATOCRIT 35.5 % (36.0-47.0); HEMOGLOBIN 12.1 g/dL (12.0-15.5); LYMPHOCYTES % (AUTO) 23.7 % (13-45); MEAN CORPUSCULAR HEMOGLOBIN 29.3 pg (27.0-33.4); MEAN CORPUSCULAR HGB CONC 34.1 g/dL (32.0-36.0); MEAN CORPUSCULAR VOLUME 86 fl (80-97); MONOCYTES % (AUTO) 9.2 % (3-13); PLATELET COUNT 231 10^3/uL (150-450); RED BLOOD COUNT 4.12 10^6/uL (3.72-5.28); RED CELL DISTRIBUTION WIDTH 13.8 % (11.5-14.0); SEGMENTED NEUTROPHILS % (AUTO) 61.6 % (42-78); TOTAL CELLS COUNTED % (AUTO) 100 %; WHITE BLOOD COUNT 10.7 10^3/uL (4.0-10.5)
[2018-01-27 06:12] LABS: APPEARANCE,URINE SLIGHTLY-CLOUDY; BILIRUBIN,URINE NEGATIVE (NEGATIVE); COLOR,URINE YELLOW; GLUCOSE, URINE NEGATIVE (NEGATIVE); KETONES,URINE NEGATIVE (NEGATIVE); LEUKOCYTE ESTERASE,URINE NEGATIVE (NEGATIVE); NITRITE,URINE NEGATIVE (NEGATIVE); PROTEIN,URINE NEGATIVE (NEGATIVE); URINE SPECIFIC GRAVITY 1.024; UROBILINOGEN,URINE NEGATIVE mg/dL (<2.0)
--- NOTE | 2018-01-27 07:21 | ER Document Report ---
ED General - General Chief Complaint: Vag Bleeding, +preg <12wks Stated Complaint: VAGINAL BLEEDING Time Seen by Provider: 01/27/18 05:36 TRAVEL OUTSIDE OF THE [place] IN LAST 30 DAYS: No - HPI Patient complains to provider of: Vaginal bleeding Notes: Patient coming in for evaluation of vaginal bleeding currently approximate 7 weeks. Patient is a . Patient otherwise denies any abdominal pain nausea vomiting fevers chills. Patient states that she was seen in [facility] and was given a RhoGam shot. Patient states that she is here for another exam shot. Reviewed patient's previous visits show the patient has always been a positive. Patient otherwise denies any trauma resting comfortably. - Related Data Allergies/Adverse Reactions: No Known Allergies Allergy (Verified 01/18/18 14:41) Past Medical History - Social History Smoking Status: Never Smoker Frequency of alcohol use: None Drug Abuse: None Family History: Reviewed & Not Pertinent, Malignancy Patient has suicidal ideation: No Patient has homicidal ideation: No Pulmonary Medical History: Denies: Hx Asthma, Hx Bronchitis, Hx COPD, Hx Pneumonia Neurological Medical History: Denies: Hx Cerebrovascular Accident, Hx Migraine, Hx Seizures Endocrine Medical History: Denies: Hx Diabetes Mellitus Type 1, Hx Diabetes Mellitus Type 2, Hx Graves' Disease Renal/ Medical History: Denies: Hx End Stage Renal Disease, Hx Kidney Stones, Hx Ovarian Cysts, Hx Peritoneal Dialysis, Hx Pelvic Inflammatory Disease Malignancy Medical History: Denies: Hx Breast Cancer, Hx Cervical Cancer, Hx Leukemia, Hx Liver Cancer, Hx Lung Cancer GI Medical History: Denies: Hx Diverticulitis, Hx Gastritis, Hx Gastroesophageal Reflux Disease, Hx Hepatitis, Hx Hiatal Hernia Musculoskeletal Medical History: Denies Hx Multiple Sclerosis, Denies Hx Muscle Weakness, Denies Hx Musculoskeletal Deformity Psychiatric Medical History: Denies: Hx Attention Deficit Hyperactivity Disorder, Hx Bipolar Disorder, Hx Borderline Personality Disorder, Hx Depression Infectious Medical History: Denies: Hx Hepatitis Past Surgical History: Reports: Hx Oral Surgery - wisdom, Hx Tonsillectomy - Immunizations Immunizations up to date: Yes Hx Diphtheria, Pertussis, Tetanus Vaccination: Yes Review of Systems - Review of Systems Constitutional: No symptoms reported EENT: No symptoms reported Cardiovascular: No symptoms reported Respiratory: No symptoms reported Gastrointestinal: No symptoms reported Genitourinary: No symptoms reported Female Genitourinary: Vaginal bleeding Musculoskeletal: No symptoms reported Skin: No symptoms reported Hematologic/Lymphatic: No symptoms reported Neurological/Psychological: No symptoms reported -: Yes All other systems reviewed and negative Physical Exam - Vital signs Vitals: Temp Pulse Resp BP Pulse Ox 98.5 F 80 18 121/62 99 01/27/18 05:28 01/27/18 05:28 01/27/18 05:28 01/27/18 05:28 01/27/18 05:28 Interpretation: Normal - General General appearance: Appears well, Alert - HEENT Head: Normocephalic, Atraumatic Eyes: Normal Pupils: PERRL - Respiratory Respiratory status: No respiratory distress Chest status: Nontender Breath sounds: Normal Chest palpation: Normal - Cardiovascular Rhythm: Regular Heart sounds: Normal auscultation Murmur: No - Abdominal Inspection: Normal Distension: No distension Bowel sounds: Normal Tenderness: Nontender Organomegaly: No organomegaly - Back Back: Normal, Nontender - Extremities General upper extremity: Normal inspection, Nontender, Normal color, Normal ROM , Normal temperature General lower extremity: Normal inspection, Nontender, Normal color, Normal ROM , Normal temperature, Normal weight bearing. No: Lola's sign - Neurological Neuro grossly intact: Yes Cognition: Normal Orientation: AAOx4 Mikel Coma Scale Eye Opening: Spontaneous [place] Coma Scale Verbal: Oriented [place] Coma Scale Motor: Obeys Commands Mikel Coma Scale Total: 15 Speech: Normal Motor strength normal: LUE, RUE, LLE, RLE Sensory: Normal - Psychological Associated symptoms: Normal affect, Normal mood - Skin Skin Temperature: Warm Skin Moisture: Dry Skin Color: Normal Course - Re-evaluation Re-evalutation: 01/27/18 07:21 Again reviewed the patient's past medical records show the patient is a positive. Unclear why the patient would receive RhoGam 01/27/18 14:46 Patient again is a positive. Ultrasound shows IUP with subchorionic bleed is slightly gotten larger. At this time no other critical full pathology seen. Patient will be given Reglan for her nausea home encouraged to follow-up with OB /ANGLEDOZER OPERATOR. Patient discharged home. - Vital Signs Vital signs: Temp Pulse Resp BP Pulse Ox 98.4 F 72 16 124/62 96 01/27/18 08:53 01/27/18 08:53 01/27/18 08:53 01/27/18 08:53 01/27/18 08:53 - Laboratory Result Diagrams: 01/27/18 05:40 Laboratory results interpreted by me: 01/27/18 01/27/18 01/27/18 05:40 05:40 05:51 WBC 10.7 H Hct 35.5 L Beta HCG, Quant > 529641.00 H Urine Blood LARGE H Urine Ascorbic Acid 40 H Discharge - Discharge Clinical Impression: Vaginal bleeding in Subchorionic bleed Qualifiers: Fetus number: single or unspecified fetus Trimester: first trimester Qualified Code(s): O41.8X10 - Other specified disorders of amniotic fluid and membranes, first trimester, not applicable or unspecified Condition: Good Disposition: HOME, SELF-CARE Instructions: Bleeding During Early ([facility]) Additional Instructions: At this time the ultrasound redemonstrates a small subchorionic bleed to your OB /ANGLEDOZER OPERATOR will need to follow. Otherwise there is no abnormalities on your lab work or on your ultrasound. I would recommend that you continue your vitamins. I would recommend Reglan for any nausea that she may have. I would also recommend observing pelvic rest. Nothing inside the vagina no toys no sex no tampons. Follow-up with your UPPER CUTTER MACHINE. Return to the ER if symptoms worsen. Prescriptions: Metoclopramide HCl [Reglan] 5 mg PO Q6 #30 tablet Forms: Return to Work
--- NOTE | 2018-01-27 08:11 | RADIOLOGY REPORT (SQ) ---
EXAM DESCRIPTION: U/S OB TRANSVAG W/DOPPLER COMPLETED DATE/TIME: 01/27/2018 7:39 am REASON FOR STUDY: vaginal bleeding, cramping, first trimester COMPARISON: Ob ultrasound 01/18/2018 TECHNIQUE: Transvaginal static and realtime grayscale images acquired of the pelvis. Additional francisco cted spectral and color Doppler images recorded. All images stored on PACs. bHCG: Not provided CLINICAL DATES: EGA 7 weeks 4 days LIMITATIONS: None. FINDINGS: FETUS: Living intrauterine . ULTRASOUND EGA: 7 weeks 3 days ULTRASOUND JUSTUS: 09/12/2018 CRL: 1.3 cm FHR: 165 beats per minute. SUBCHORIONIC BLEED: , measuring SIZE OF BLEED: 1.3 x 1.8 x 1.4 cm UTERUS: No masses. No anomalies. CERVICAL LENGTH: 4.2 cm Closed. RIGHT ADNEXA: Normal ovary with normal vascular flow. Measures 3.3 x 6 7 x 3.9 cm and contains a 3.3 x 2.8 x 2.6 cm cyst No adnexal free fluid. No adnexal masses. LEFT ADNEXA: Normal ovary with normal vascular flow. Measures 2.5 x 2.0 x 2.7 cm. No adnexal free fluid. No adnexal masses. FREE FLUID: None. OTHER: No other significant finding. IMPRESSION: LIVING INTRAUTERINE . EGA 7 weeks 3 day Trimester of : First - 0 to 13 weeks. TECHNICAL DOCUMENTATION: JOB ID: [id number] [employer]- All Rights Reserved rev Reading location - IP/workstation name: [email or web address]
[2018-01-27 08:54] VITALS: BP 124/62
--- NOTE | 2018-01-27 08:54 | ER Document Report ---
ED General - General Chief Complaint: Vag Bleeding, +preg <12wks Stated Complaint: VAGINAL BLEEDING Time Seen by Provider: 01/27/18 05:36 TRAVEL OUTSIDE OF THE [place] IN LAST 30 DAYS: No - Related Data Allergies/Adverse Reactions: No Known Allergies Allergy (Verified 01/18/18 14:41) Past Medical History - Social History Smoking Status: Never Smoker Frequency of alcohol use: None Drug Abuse: None Family History: Reviewed & Not Pertinent, Malignancy Patient has suicidal ideation: No Patient has homicidal ideation: No Pulmonary Medical History: Denies: Hx Asthma, Hx Bronchitis, Hx COPD, Hx Pneumonia Neurological Medical History: Denies: Hx Cerebrovascular Accident, Hx Migraine, Hx Seizures Endocrine Medical History: Denies: Hx Diabetes Mellitus Type 1, Hx Diabetes Mellitus Type 2, Hx Graves' Disease Renal/ Medical History: Denies: Hx End Stage Renal Disease, Hx Kidney Stones, Hx Ovarian Cysts, Hx Peritoneal Dialysis, Hx Pelvic Inflammatory Disease Malignancy Medical History: Denies: Hx Breast Cancer, Hx Cervical Cancer, Hx Leukemia, Hx Liver Cancer, Hx Lung Cancer GI Medical History: Denies: Hx Diverticulitis, Hx Gastritis, Hx Gastroesophageal Reflux Disease, Hx Hepatitis, Hx Hiatal Hernia Musculoskeletal Medical History: Denies Hx Multiple Sclerosis, Denies Hx Muscle Weakness, Denies Hx Musculoskeletal Deformity Psychiatric Medical History: Denies: Hx Attention Deficit Hyperactivity Disorder, Hx Bipolar Disorder, Hx Borderline Personality Disorder, Hx Depression Infectious Medical History: Denies: Hx Hepatitis Past Surgical History: Reports: Hx Oral Surgery - wisdom, Hx Tonsillectomy - Immunizations Immunizations up to date: Yes Hx Diphtheria, Pertussis, Tetanus Vaccination: Yes Physical Exam - Vital signs Vitals: Temp Pulse Resp BP Pulse Ox 98.5 F 80 18 121/62 99 01/27/18 05:28 01/27/18 05:28 01/27/18 05:28 01/27/18 05:28 01/27/18 05:28 Course - Vital Signs Vital signs: Temp Pulse Resp BP Pulse Ox 98.5 F 80 18 121/62 99 01/27/18 05:28 01/27/18 05:28 01/27/18 05:28 01/27/18 05:28 01/27/18 05:28 - Laboratory Result Diagrams: 01/27/18 05:40 Laboratory results interpreted by me: 01/27/18 01/27/18 01/27/18 05:40 05:40 05:51 WBC 10.7 H Hct 35.5 L Beta HCG, Quant > 419387.00 H Urine Blood LARGE H Urine Ascorbic Acid 40 H Discharge - Discharge Clinical Impression: Vaginal bleeding in Subchorionic bleed Qualifiers: Fetus number: single or unspecified fetus Trimester: first trimester Qualified Code(s): O41.8X10 - Other specified disorders of amniotic fluid and membranes, first trimester, not applicable or unspecified; O46.8X1 - Other antepartum hemorrhage, first trimester; O46.8X1 - Other antepartum hemorrhage, first trimester Condition: Good Disposition: HOME, SELF-CARE Instructions: Bleeding During Early ([facility]) Additional Instructions: At this time the ultrasound redemonstrates a small subchorionic bleed to your OB /OUTSOLE SKIVER will need to follow. Otherwise there is no abnormalities on your lab work or on your ultrasound. I would recommend that you continue your vitamins. I would recommend Reglan for any nausea that she may have. I would also recommend observing pelvic rest. Nothing inside the vagina no toys no sex no tampons. Follow-up with your PROPAGATOR LABORER. Return to the ER if symptoms worsen. Prescriptions: Metoclopramide HCl [Reglan] 5 mg PO Q6 #30 tablet Forms: Return to Work
== END 2018-01-27 08:57 | disposition home or self-care (01) ==
LOC: ER 05:20
DX: O20.8 Other hemorrhage in early pregnancy (principal); O26.891 Other specified pregnancy related conditions, first trimester; R11.0 Nausea; Z3A.00 Weeks of gestation of pregnancy not specified
CPT/HCPCS: 36415; 76817; 81001; 84702; 85025; 86900; 86901; 93976; 99284

== ENCOUNTER 2018-05-16 12:14 | Outpatient (CLI) | payer MEDICAID ==
[2018-05-16 12:49] LABS: APPEARANCE,URINE CLEAR; BILIRUBIN,URINE NEGATIVE (NEGATIVE); COLOR,URINE YELLOW; GLUCOSE, URINE NEGATIVE (NEGATIVE); KETONES,URINE NEGATIVE (NEGATIVE); LEUKOCYTE ESTERASE,URINE NEGATIVE (NEGATIVE); NITRITE,URINE NEGATIVE (NEGATIVE); PROTEIN,URINE NEGATIVE (NEGATIVE); URINE SPECIFIC GRAVITY 1.013; UROBILINOGEN,URINE NEGATIVE mg/dL (<2.0)
[2018-05-16 13:27] LABS: UR PRO/CREAT RATIO RESULT 0.1 mg/mg (0.0-0.2); URINE CREATININE 75.7 mg/dL (16-327); URINE PROTEIN 7.9 mg/dL (<12)
[2018-05-16 13:30] LABS: URINE AMPHETAMINES SCREEN NEGATIVE; URINE BARBITURATES SCREEN NEGATIVE; URINE BENZODIAZEPINES SCREEN NEGATIVE; URINE COCAINE SCREEN NEGATIVE; URINE METHADONE SCREEN NEGATIVE; URINE PHENCYCLIDINE SCREEN NEGATIVE
[2018-05-16 13:31] LABS: ABSOLUTE EOSINOPHILS # (AUTO) 0.4 10^3/uL (0.0-0.6); ABSOLUTE LYMPHOCYTES (AUTO) 1.5 10^3/uL (0.5-4.7); ABSOLUTE MONOCYTES (AUTO) 1.1 10^3/uL (0.1-1.4); ABSOLUTE NEUT (AUTO) 7.5 10^3/uL (1.7-8.2); BASOPHILS % (AUTO) 0.2 % (0-2); EOSINOPHILS % (AUTO) 3.6 % (0-6); HEMATOCRIT 30.6 % (36.0-47.0); HEMOGLOBIN 10.8 g/dL (12.0-15.5); LYMPHOCYTES % (AUTO) 14.7 % (13-45); MEAN CORPUSCULAR HEMOGLOBIN 30.3 pg (27.0-33.4); MEAN CORPUSCULAR HGB CONC 35.1 g/dL (32.0-36.0); MEAN CORPUSCULAR VOLUME 86 fl (80-97); PLATELET COUNT 204 10^3/uL (150-450); RED BLOOD COUNT 3.54 10^6/uL (3.72-5.28); RED CELL DISTRIBUTION WIDTH 12.7 % (11.5-14.0); SEGMENTED NEUTROPHILS % (AUTO) 71.5 % (42-78); TOTAL CELLS COUNTED % (AUTO) 100 %; WHITE BLOOD COUNT 10.5 10^3/uL (4.0-10.5)
[2018-05-16 13:44] LABS: URINE MARIJUANA (THC) SCREEN UNCONFIRMED POSITIVE
[2018-05-16] MEDS ORDERED: ACETAMINOPHEN 325 MG TABLET PO PRN (13:52)
[2018-05-16 13:55] LABS: ALANINE AMINOTRANSFERASE 27 U/L (9-52); ALBUMIN 3.6 g/dL (3.5-5.0); ALKALINE PHOSPHATASE 55 U/L (38-126); ANION GAP 12 (5-19); ASPARTATE AMINO TRANSFERASE 19 U/L (14-36); BILIRUBIN,DIRECT 0.2 mg/dL (0.0-0.4); BILIRUBIN,TOTAL 0.3 mg/dL (0.2-1.3); BLOOD UREA NITROGEN 11 mg/dL (7-20); CARBON DIOXIDE 24 mmol/L (22-30); CHLORIDE 103 mmol/L (98-107); GLUCOSE 68 mg/dL (75-110); POTASSIUM 3.8 mmol/L (3.6-5.0); SODIUM 138.8 mmol/L (137-145); TOTAL PROTEIN 6.5 g/dL (6.3-8.2); URIC ACID 4.2 mg/dL (2.5-6.2)
[2018-05-16] MEDS ORDERED: ACETAMINOPHEN 325 MG TABLET ONE (14:27)
== END 2018-05-16 14:38 | disposition home or self-care (01) ==
LOC: LC 12:14
PROVIDERS: ATTEND Obstetrics & Gynecology Gynecology
PROC: 4A1HXCZ Monitoring of Products of Conception, Cardiac Rate, External Approach (ICD-10-PCS; principal; 2018-05-16)
DX: O47.02 False labor before 37 completed weeks of gestation, second trimester (principal); Z3A.23 23 weeks gestation of pregnancy; O26.892 Other specified pregnancy related conditions, second trimester; R51 Headache; Z87.891 Personal history of nicotine dependence; F12.11 Cannabis abuse, in remission
CPT/HCPCS: 59899; 36415; 84156; 84550; 82570; 85025; 80053; 81001; 80307; G0480 ×2; J3490; 80349

== ENCOUNTER 2018-08-23 18:19 | Outpatient (CLI) | payer MEDICAID ==
[2018-08-23 18:55] LABS: APPEARANCE,URINE CLOUDY; BILIRUBIN,URINE NEGATIVE (NEGATIVE); GLUCOSE, URINE NEGATIVE (NEGATIVE); KETONES,URINE NEGATIVE (NEGATIVE); LEUKOCYTE ESTERASE,URINE NEGATIVE (NEGATIVE); NITRITE,URINE NEGATIVE (NEGATIVE); PROTEIN,URINE 30 mg/dL (NEGATIVE); URINE SPECIFIC GRAVITY 1.032
[2018-08-23 18:56] LABS: COLOR,URINE YELLOW
[2018-08-23 19:12] LABS: URINE AMPHETAMINES SCREEN NEGATIVE; URINE BARBITURATES SCREEN NEGATIVE; URINE BENZODIAZEPINES SCREEN NEGATIVE; URINE COCAINE SCREEN NEGATIVE; URINE MARIJUANA (THC) SCREEN NEGATIVE; URINE METHADONE SCREEN NEGATIVE; URINE PHENCYCLIDINE SCREEN NEGATIVE
--- NOTE | 2018-08-23 21:13 | Non Stress Test Report ---
Non Stress Test Datetime Report Generated by CPN: 08/23/2018 21:13 DEMOGRAPHIC EGA NST: 37.2 INDICATION Indication for Study: Other Indication for Study (NST) Other: LC VITAL SIGNS Temperature - NST: 98.0 Pulse - NST: 88 RESP - NST: 16 NBPSYS NST: 122 NBPDIA NST: 65 URINE RESULTS Urine Protein, NST: Positive Urine Ketones - NST: Negative Urine Glucose - NST: Negative Urine Blood - NST: Negative MONITORING Monitor Explained: Monitor Explained; Test Explained; Patient Verbalized Understanding Time on Monitor: 08/23/2018 18:40 Time off Monitor: 08/23/2018 19:18 NST Duration: 38 NST INTERVENTIONS NST Interventions: PO Hydration Physician Notified NST: Dr. Younger BABY A: [id number] BABY A Movement : Present Contraction Frequency : Irritability FHR Baseline : 135 Accelerations : 15X15 Decelerations : None Variability : Moderate 6-25bpm NST Review: Meets Criteria for Reactive NST NST Review and Verified By : Phoebe Pelayo RN NST Results: Reactive NST REPORT Report Trigger: Send Report
== END 2018-08-23 19:58 | disposition home or self-care (01) ==
LOC: LC 18:19
PROVIDERS: ATTEND Obstetrics & Gynecology
PROC: 4A1HXCZ Monitoring of Products of Conception, Cardiac Rate, External Approach (ICD-10-PCS; principal; 2018-08-23)
DX: O47.1 False labor at or after 37 completed weeks of gestation (principal); Z3A.37 37 weeks gestation of pregnancy
CPT/HCPCS: 59025; 80307; 81005; 84112

== ENCOUNTER 2018-09-08 15:58 | Outpatient (CLI) | payer MEDICAID ==
[2018-09-08 16:56] LABS: APPEARANCE,URINE CLOUDY; BILIRUBIN,URINE NEGATIVE (NEGATIVE); COLOR,URINE YELLOW; GLUCOSE, URINE NEGATIVE (NEGATIVE); KETONES,URINE NEGATIVE (NEGATIVE); LEUKOCYTE ESTERASE,URINE TRACE (NEGATIVE); NITRITE,URINE NEGATIVE (NEGATIVE); PROTEIN,URINE NEGATIVE (NEGATIVE); URINE SPECIFIC GRAVITY 1.014; UROBILINOGEN,URINE NEGATIVE mg/dL (<2.0)
[2018-09-08 17:10] LABS: URINE AMPHETAMINES SCREEN NEGATIVE; URINE BARBITURATES SCREEN NEGATIVE; URINE BENZODIAZEPINES SCREEN NEGATIVE; URINE COCAINE SCREEN NEGATIVE; URINE MARIJUANA (THC) SCREEN NEGATIVE; URINE METHADONE SCREEN NEGATIVE; URINE PHENCYCLIDINE SCREEN NEGATIVE
== END 2018-09-08 17:45 | disposition home or self-care (01) ==
LOC: LC 15:58
PROVIDERS: ATTEND Obstetrics & Gynecology
DX: O36.8390 Maternal care for abnormalities of the fetal heart rate or rhythm, unspecified trimester, not applicable or unspecified (principal); Z3A.39 39 weeks gestation of pregnancy
CPT/HCPCS: 59025; 80307; 81005

== ENCOUNTER 2018-09-09 18:57 | Outpatient (CLI) | payer MEDICAID ==
[2018-09-09 19:51] LABS: APPEARANCE,URINE CLOUDY; BILIRUBIN,URINE NEGATIVE (NEGATIVE); COLOR,URINE YELLOW; GLUCOSE, URINE NEGATIVE (NEGATIVE); KETONES,URINE NEGATIVE (NEGATIVE); LEUKOCYTE ESTERASE,URINE TRACE (NEGATIVE); NITRITE,URINE NEGATIVE (NEGATIVE); PROTEIN,URINE NEGATIVE (NEGATIVE); URINE SPECIFIC GRAVITY 1.019; UROBILINOGEN,URINE NEGATIVE mg/dL (<2.0)
[2018-09-09 20:07] LABS: URINE AMPHETAMINES SCREEN NEGATIVE; URINE BARBITURATES SCREEN NEGATIVE; URINE BENZODIAZEPINES SCREEN NEGATIVE; URINE COCAINE SCREEN NEGATIVE; URINE MARIJUANA (THC) SCREEN NEGATIVE; URINE METHADONE SCREEN NEGATIVE; URINE PHENCYCLIDINE SCREEN NEGATIVE
--- NOTE | 2018-09-09 20:24 | Non Stress Test Report ---
Non Stress Test Datetime Report Generated by CPN: 09/09/2018 20:24 DEMOGRAPHIC Test Number: 3 EGA NST: 39.5 EGA NST: 39.4 INDICATION Indication for Study: Other Indication for Study: Other Indication for Study (NST) Other: Labor check Indication for Study (NST) Other: lc VITAL SIGNS Temperature - NST: 98.4 Pulse - NST: 83 RESP - NST: 16 NBPSYS NST: 123 NBPDIA NST: 58 URINE RESULTS Urine Protein, NST: Negative Urine Ketones - NST: Negative Urine Glucose - NST: Negative Urine Blood - NST: Negative MONITORING Monitor Explained: Monitor Explained; Test Explained; Patient Verbalized Understanding Monitor Explained: Monitor Explained; Test Explained; Patient Verbalized Understanding Time on Monitor: 09/09/2018 19:11 Time on Monitor: 09/08/2018 16:15 Time off Monitor: 09/09/2018 19:48 NST Duration: 37 NST INTERVENTIONS NST Interventions: PO Hydration; Reposition Patient NST Interventions: PO Hydration; Reposition Patient Physician Notified NST: Dr. Raya Physician Notified NST: Omkar BABY A: [id number] BABY A Movement : Present Movement : Present Contraction Frequency : Irregular Contraction Frequency : 2-3 FHR Baseline : 140 FHR Baseline : 135 Accelerations : 15X15 Accelerations : 15X15 Decelerations : None Decelerations : None Variability : Moderate 6-25bpm Variability : Moderate 6-25bpm NST Review: Meets Criteria for Reactive NST NST Review: Meets Criteria for Reactive NST NST Review and Verified By : Gina Scurggs RN NST Review and Verified By : CORWIN LouisT Results: Reactive NST Results: Reactive NST REPORT Report Trigger: Send Report
== END 2018-09-09 20:05 | disposition home or self-care (01) ==
LOC: LC 18:57
PROVIDERS: ATTEND Obstetrics & Gynecology
DX: O36.8390 Maternal care for abnormalities of the fetal heart rate or rhythm, unspecified trimester, not applicable or unspecified (principal); Z87.891 Personal history of nicotine dependence
CPT/HCPCS: 59025; 80307; 81005

== ENCOUNTER 2018-09-17 19:48 | Inpatient (IN) | payer MEDICAID ==
[2018-09-17] MEDS ORDERED: RINGERS SOLUTION,LACTATED 300 ML IV ONE (20:00)
[2018-09-17] MEDS ORDERED: ZOLPIDEM TARTRATE 5 MG TABLET PO PRN (20:00)
[2018-09-17] MEDS ORDERED: MAG HYDROX/AL HYDROX/SIMETH SUSP 30 ML UDCUP PO PRN (20:00)
[2018-09-17] MEDS ORDERED: ACETAMINOPHEN 325 MG TABLET PO PRN (20:00)
[2018-09-17] MEDS ORDERED: OXYTOCIN/NORMAL SALINE 20 UNIT/1,000 ML RTUINJ IV PRN (20:00)
[2018-09-17] MEDS ORDERED: DINOPROSTONE 10 MG VAGINAL INSERT.SR PV ONE (20:00)
[2018-09-17 20:46] LABS: ABSOLUTE BASOPHILS # (AUTO) 0.1 10^3/uL (0.0-0.2); ABSOLUTE EOSINOPHILS # (AUTO) 0.2 10^3/uL (0.0-0.6); ABSOLUTE LYMPHOCYTES (AUTO) 1.6 10^3/uL (0.5-4.7); ABSOLUTE NEUT (AUTO) 10.1 10^3/uL (1.7-8.2); BASOPHILS % (AUTO) 0.4 % (0-2); EOSINOPHILS % (AUTO) 1.4 % (0-6); HEMATOCRIT 28.9 % (36.0-47.0); HEMOGLOBIN 9.7 g/dL (12.0-15.5); LYMPHOCYTES % (AUTO) 12.1 % (13-45); MEAN CORPUSCULAR HEMOGLOBIN 25.9 pg (27.0-33.4); MEAN CORPUSCULAR HGB CONC 33.6 g/dL (32.0-36.0); MEAN CORPUSCULAR VOLUME 77 fl (80-97); MONOCYTES % (AUTO) 7.8 % (3-13); PLATELET COUNT 214 10^3/uL (150-450); RED BLOOD COUNT 3.75 10^6/uL (3.72-5.28); RED CELL DISTRIBUTION WIDTH 14.7 % (11.5-14.0); SEGMENTED NEUTROPHILS % (AUTO) 78.3 % (42-78); TOTAL CELLS COUNTED % (AUTO) 100 %; WHITE BLOOD COUNT 12.9 10^3/uL (4.0-10.5)
[2018-09-17] MEDS ORDERED: DINOPROSTONE 10 MG VAGINAL INSERT.SR ONE (20:50)
[2018-09-17] MEDS: RINGERS SOLUTION,LACTATED 1,000 ML IV PRN (20:58)
[2018-09-17 21:13] LABS: ALANINE AMINOTRANSFERASE 20 U/L (9-52); ALBUMIN 3.4 g/dL (3.5-5.0); ALKALINE PHOSPHATASE 177 U/L (38-126); ANION GAP 8 (5-19); ASPARTATE AMINO TRANSFERASE 18 U/L (14-36); BILIRUBIN,DIRECT 0.2 mg/dL (0.0-0.4); BILIRUBIN,TOTAL 0.4 mg/dL (0.2-1.3); BLOOD UREA NITROGEN 10 mg/dL (7-20); CALCIUM 9.1 mg/dL (8.4-10.2); CARBON DIOXIDE 21 mmol/L (22-30); CHLORIDE 105 mmol/L (98-107); GLUCOSE 108 mg/dL (75-110); POTASSIUM 3.7 mmol/L (3.6-5.0); SODIUM 134.2 mmol/L (137-145); TOTAL PROTEIN 6.4 g/dL (6.3-8.2)
[2018-09-17 21:25] LABS: URINE AMPHETAMINES SCREEN NEGATIVE; URINE BARBITURATES SCREEN NEGATIVE; URINE BENZODIAZEPINES SCREEN NEGATIVE; URINE COCAINE SCREEN NEGATIVE; URINE MARIJUANA (THC) SCREEN NEGATIVE; URINE METHADONE SCREEN NEGATIVE; URINE PHENCYCLIDINE SCREEN NEGATIVE
[2018-09-18] MEDS ORDERED: ZOLPIDEM TARTRATE 5 MG TABLET ONE (02:43)
[2018-09-18] MEDS ORDERED: MISOPROSTOL 0.2 MG TABLET ONE (04:45)
[2018-09-18] MEDS ORDERED: LIDOCAINE 1% INJ-PF (10 MG/ML) 30 ML SDV ONE (04:45)
[2018-09-18] MEDS ORDERED: OXYTOCIN 10 UNIT/ML VIAL ONE (04:45)
[2018-09-18] MEDS ORDERED: OXYTOCIN/NORMAL SALINE 20 UNIT/1,000 ML RTUINJ ONE (04:45)
[2018-09-18] MEDS: RINGERS SOLUTION,LACTATED 1,000 ML IV PRN ×3 (04:50→23:21)
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
[2018-09-18] MEDS ORDERED: ACETAMINOPHEN 325 MG TABLET ONE (11:41)
[2018-09-18] MEDS ORDERED: HYDROXYZINE PAMOATE 50 MG CAPSULE ONE (11:41)
[2018-09-18] MEDS ORDERED: ACETAMINOPHEN 325 MG TABLET PO ONE (11:44)
[2018-09-18] MEDS ORDERED: HYDROXYZINE PAMOATE 50 MG CAPSULE PO ONE (11:44)
[2018-09-18] MEDS ORDERED: PROMETHAZINE HCL INJ 25 MG/1 ML VIAL IV ONE ×2 (13:10→23:30)
[2018-09-18] MEDS ORDERED: NALBUPHINE HCL INJ 10 MG/1 ML AMPULE IM ONE (13:10)
[2018-09-18] MEDS ORDERED: NALBUPHINE HCL INJ 10 MG/1 ML AMPULE IV ONE (13:10)
[2018-09-18] MEDS ORDERED: PROMETHAZINE HCL INJ 25 MG/1 ML VIAL ONE ×2 (13:12→23:02)
[2018-09-18] MEDS ORDERED: NALBUPHINE HCL INJ 10 MG/1 ML AMPULE ONE (13:12)
[2018-09-18] MEDS ORDERED: PHENYLEPHRINE HCL INJ/PF 10 MG/1 ML SDV ONE (16:46)
[2018-09-18] MEDS ORDERED: EPHEDRINE SULFATE INJ 50 MG/1 ML AMPULE ONE (16:47)
[2018-09-18] MEDS ORDERED: BUPIVACAINE HCL 0.25 % INJ/PF (2.5 MG/1 ML) 30 ML VIAL ONE (16:47)
[2018-09-18] MEDS ORDERED: FENTANYL/BUPIVACAINE/NS/PF 300 MCG/150 ML RTUINJ EPI ONE (16:47)
[2018-09-18] MEDS ORDERED: FENTANYL CITRATE INJ/PF 100 MCG/2 ML AMPUL ONE (16:47)
[2018-09-18] MEDS ORDERED: LIDOCAINE 1.5%/EPINEPHRINE INJ 5 ML AMP ONE (16:53)
[2018-09-18] MEDS ORDERED: LIDOCAINE 2%/EPINEPHRINE INJ 20 ML VIAL ONE (22:49)
[2018-09-18] MEDS ORDERED: SODIUM BICARBONATE 8.4% INJ 50 MEQ/50 ML DISP.SYRIN ONE (22:52)
[2018-09-19] MEDS ORDERED: OXYTOCIN/NORMAL SALINE 20 UNIT/1,000 ML RTUINJ ONE (01:30)
[2018-09-19] MEDS ORDERED: MISOPROSTOL 0.2 MG TABLET ONE (01:42)
[2018-09-19] MEDS ORDERED: METHYLERGONOVINE MALEATE INJ/PF 0.2 MG/1 ML AMPULE ONE (01:43)
[2018-09-19] MEDS ORDERED: MAGNESIUM HYDROXIDE SUSP 30 ML UDCUP PO PRN (01:51)
[2018-09-19] MEDS ORDERED: ACETAMINOPHEN 650 MG SUPP.RECT PR PRN (01:51)
[2018-09-19] MEDS ORDERED: DIBUCAINE 1% OINTMENT 56 GM TP PRN (01:51)
[2018-09-19] MEDS ORDERED: BENZOCAINE/MENTHOL AEROSOL SPRAY 56 ML TOP PRN (01:51)
[2018-09-19] MEDS ORDERED: DIPH/PERTUSS(ACELL)/TETANUS VAC/PF 0.5 ML SYR (>=10YO) IM PRN (01:51)
[2018-09-19] MEDS ORDERED: ACETAMINOPHEN WITH CODEINE #3 TABLET PO PRN (01:51)
[2018-09-19] MEDS ORDERED: DIPHENHYDRAMINE HCL 25 MG CAPSULE PO PRN (01:51)
[2018-09-19] MEDS ORDERED: OXYTOCIN/NORMAL SALINE 20 UNIT/1,000 ML RTUINJ IV PRN (01:51)
[2018-09-19] MEDS ORDERED: PROMETHAZINE HCL 25 MG TABLET PO PRN (01:51)
[2018-09-19] MEDS ORDERED: GLYCERIN/WITCH HAZEL LEAF 1 EACH MED..PAD TP PRN (01:51)
[2018-09-19] MEDS ORDERED: MEASLES,MUMPS&RUBELLA VACC/PF 0.5 ML VIAL SUBCUT PRN (01:51)
[2018-09-19] MEDS ORDERED: ZOLPIDEM TARTRATE 5 MG TABLET PO PRN (01:51)
[2018-09-19] MEDS ORDERED: NA PHOS,M-B/NA PHOS,DI-BA (ADULT) 133 ML ENEMA PR PRN (01:51)
[2018-09-19] MEDS ORDERED: PSEUDOEPHEDRINE HCL 30 MG TABLET PO PRN (01:51)
[2018-09-19] MEDS ORDERED: PROMETHAZINE HCL 25 MG SUPP.RECT PR PRN (01:51)
[2018-09-19] MEDS ORDERED: PROMETHAZINE HCL INJ 25 MG/1 ML VIAL IV PRN (01:51)
[2018-09-19] MEDS ORDERED: IBUPROFEN 800 MG TABLET ONE (04:03)
[2018-09-19] MEDS: IBUPROFEN 800 MG TABLET PO SCH ×3 (08:05→21:42)
[2018-09-19] MEDS: FAMOTIDINE 20 MG TABLET PO SCH ×2 (09:04→21:42)
[2018-09-19] MEDS: FERROUS SULFATE 325 MG TABLET PO SCH ×2 (09:04→18:26)
[2018-09-19] MEDS: PRENATAL VITAMIN W DHA CAPSULE PO SCH (09:04)
[2018-09-19] MEDS: SENNOSIDES/DOCUSATE 8.6-50 MG 1 EACH TABLET PO SCH (09:04)
[2018-09-19] MEDS: DOCUSATE SODIUM 100 MG CAPSULE PO SCH ×2 (09:04→18:26)
--- NOTE | 2018-09-19 14:38 | PDOC PROGRESS REPORT ---
Subjective-OB Progress Note for:: 09/19/18 Subjective: 23yo G3 now P1 s/p ppd. Pt. ambulating, and voiding without difficulty. Reports pain well controlled with medication. Denies any concerns at this time. Physical Exam (OB) Vital Signs: Temp Pulse Resp BP Pulse Ox 98.3 F 82 18 133/71 H 97 09/19/18 04:36 09/19/18 04:36 09/19/18 04:36 09/19/18 04:36 09/19/18 04:36 Intake & Output 09/18/18 09/19/18 09/20/18 06:59 06:59 06:59 Intake Total 983 1999 Balance 983 1999 Weight 120.8 kg - General General Appearance: Appears well In distress: None - PIH/Pre-Eclampsia Clonus: Negative Headache: Absent Epigastric Pain: No Visual Changes: No - Episiotomy/Laceration Site Condition: N/A - Lochia Lochia Amount: Scant < 10 ml Lochia Color: Rubra/Red - Abdomen Description: Soft, Round Hernia Present: No Fundal Description: Firm, Midline Fundal Height: u/u - u/2 - Respiratory Respiratory Status: No respiratory distress - Extremities Upper extremity: Normal inspection Lower extremities: Normal inspection - Neurological Cognition: Normal Orientation: AAOx4 - Psychological Associated symptoms: Normal affect, Normal mood Objective-Diagnostic Laboratory: 09/17/18 20:31 09/17/18 20:31 Assessment and Plan(PN) - Assessment and Plan (1) Vaginal delivery Is this a current diagnosis for this admission?: Yes Plan: Routine pp care (2) Anemia complicating , third trimester Is this a current diagnosis for this admission?: Yes - Time Spent with Patient Time with patient: Less than 15 minutes Smoking Education Provided: Over 3 minutes Medications reviewed and adjusted accordingly: Yes - Disposition Anticipated Discharge: Home Within: within 48 hours
[2018-09-20] MEDS: IBUPROFEN 800 MG TABLET PO SCH ×3 (05:20→21:47)
[2018-09-20 06:46] LABS: HEMATOCRIT 22.1 % (36.0-47.0); MEAN CORPUSCULAR HEMOGLOBIN 26.2 pg (27.0-33.4); MEAN CORPUSCULAR VOLUME 77 fl (80-97); PLATELET COUNT 207 10^3/uL (150-450); RED BLOOD COUNT 2.86 10^6/uL (3.72-5.28); RED CELL DISTRIBUTION WIDTH 14.9 % (11.5-14.0); WHITE BLOOD COUNT 10.9 10^3/uL (4.0-10.5)
[2018-09-20 07:12] LABS: HEMOGLOBIN 7.5 g/dL (12.0-15.5)
--- NOTE | 2018-09-20 09:23 | PDOC PROGRESS REPORT ---
Subjective Progress Note for:: 09/20/18 Subjective:: Patient states that she feels good. Breast-feeding is going well. Her lochia is decreasing. Patient denies chest pain, shortness of breath, fever/chills or nausea/vomiting. She is ambulating voiding without difficulty. Reason For Visit: /INDUCTION Physical Exam - Physical Exam Vital Signs: Temp Pulse Resp BP Pulse Ox 98.4 F 88 18 128/68 H 98 09/20/18 08:24 09/20/18 08:24 09/19/18 20:13 09/20/18 08:24 09/20/18 08:24 Intake & Output 09/19/18 09/20/18 09/21/18 06:59 06:59 06:59 Intake Total 1999 Balance 1999 General appearance: PRESENT: no acute distress Respiratory exam: PRESENT: clear to auscultation elli Cardiovascular exam: PRESENT: RRR GI/Abdominal exam: PRESENT: normal bowel sounds, soft - Fundus firm and below umbilicus Musculoskeletal exam: ABSENT: ambulatory, deformity, dislocation, full ROM, normal inspection, tenderness, other Result Laboratory Results: 09/20/18 06:21 09/17/18 20:31 09/20/18 06:21 WBC 10.9 H RBC 2.86 L Hgb 7.5 L D Hct 22.1 L MCV 77 L MCH 26.2 L MCHC 34.0 RDW 14.9 H Plt Count 207 Assessment & Plan - Diagnosis (1) Anemia complicating , third trimester Is this a current diagnosis for this admission?: Yes (2) Vaginal delivery Is this a current diagnosis for this admission?: Yes (3) Morbid obesity Is this a current diagnosis for this admission?: Yes - Time Time Spent with patient: Less than 15 minutes - Plan Summary Plan Summary: 1. Give IV iron 2. Continue care
[2018-09-20] MEDS ORDERED: IRON SUCROSE COMPLEX INJ/PF 100 MG/5 ML SDV IV ONE (11:00)
[2018-09-20] MEDS: SENNOSIDES/DOCUSATE 8.6-50 MG 1 EACH TABLET PO SCH (11:32)
[2018-09-20] MEDS: PRENATAL VITAMIN W DHA CAPSULE PO SCH (11:32)
[2018-09-20] MEDS: FERROUS SULFATE 325 MG TABLET PO SCH ×2 (11:33→18:20)
[2018-09-20] MEDS: DOCUSATE SODIUM 100 MG CAPSULE PO SCH ×2 (11:33→18:20)
[2018-09-20] MEDS: FAMOTIDINE 20 MG TABLET PO SCH ×2 (11:33→21:47)
[2018-09-21] MEDS: IBUPROFEN 800 MG TABLET PO SCH ×2 (05:31→14:37)
[2018-09-21 08:47] VITALS: BP 113/58
--- NOTE | 2018-09-21 09:43 | Delivery Summary ---
Del Sum A-C Datetime Report Generated by CPN: 09/21/2018 09:42 DELIVERY PERSONNEL DELIVERY PERSONNEL: [id number] Delivery Doctor:: Robson Mansfield MD Labor and Delivery Nurse:: Melvina Adamson RNmuseum technician Nurse:: Elizabeth Dowd RN Cut Tobacco Bulker/SIGNALING PROJECT ENGINEER: Lissette Ross, ST MATERNAL INFORMATION Delivery Anesthesia: Epidural Medications After Delivery: Pitocin Drip 20 Units/1000ml NSS; Cytotec 1000mcg Per Rectum/Vagina Maternal Complications: None LABOR SUMMARY EDC: 09/11/2018 00:00 No. Babies in Womb: 1 Attempted: No Labor Anesthesia: Epidural LABOR INFORMATION Reason for Induction: Post Dates Onset of Labor: 09/18/2018 16:00 Complete Dilatation: 09/19/2018 01:05 Cervical Ripening Agents: Cervidil Cervical Ripening Agents: cervidil came out in [place] Cervical Ripening Agents: Cervidil Oxytocin: Induction Group B Beta Strep: Negative Antibiotics # of Doses: 0 Steroids Given: None Reason Steroids Not Administered: Not Applicable MEMBRANES Membranes Rupture Method: Spontaneous Rupture of Membranes: 09/18/2018 04:58 Length of Rupture (hr): 20.58 Amniotic Fluid Color: Clear Amniotic Fluid Color: Clear Amniotic Fluid Amount: Scant Amniotic Fluid Amount: Scant Amniotic Fluid Odor: Normal STAGES OF LABOR Stage 1 hr: 9 Stage 1 min: 5 Stage 2 hr: 0 Stage 2 min: 28 Stage 3 hr: 0 Stage 3 min: 7 Total Time in Labor hr: 9 Total Time in Labor min: 40 VAGINAL DELIVERY Episiotomy: None Laceration #1: None Laceration Extension #1: N/A Laceration Repair: Not Applicable BABY A INFORMATION Delivery Date/Time: 09/19/2018 01:33 Method of Delivery: Vaginal Born in Route : No : N/A Forceps: N/A Vacuum Extraction: N/A Shoulder Dystocia : No PRESENTATION/POSITION BABY A Presentation: Cephalic Presentation: Cephalic Presentation: Cephalic Presentation: Cephalic Cephalic Presentation: Vertex Breech Presentation: N/A PLACENTA INFORMATION BABY A Placenta Delivery Time : 09/19/2018 01:40 Placenta Method of Delivery: Spontaneous Placenta Status: Delivered SCORES BABY A Heart Rate 1 min: >100 bpm Resp Effort 1 min: Good Cry Reflex Irritability 1 min: Cough or Sneeze or Pulls Away Muscle Tone 1 min: Some Flexion of Extremities Color 1 min: Blue/Pale Resuscitation Effort 1 min: Tactile Stimulation SCORE 1 MIN: 7 Heart Rate 5 min: >100 bpm Resp Effort 5 min: Good Cry Reflex Irritability 5 min: Cough or Sneeze or Pulls Away Muscle Tone 5 min: Active Motion Color 5 min: Body Mclaughlin, Extremities Blue Resuscitation Effort 5 min: N/A SCORE 5 MIN: 9 INFORMATION BABY A Gestational Age at Delivery: 41.0 Gestational Status: Late Term- 41- 41.6 Weeks Infant Outcome : Liveborn Infant Condition : Stable Infant Sex: Female IDENTIFICATION BABY A Infant Verification Date/Time: 09/19/2018 01:45 ID Band Number: [id number] Mother's Name Verified: Yes Infant RN Verifying Infant: MIKAYLAnatalie RN, Masoudtamanna RN WEIGHT/LENGTH BABY A Infant Birthweight (gm): 3926 Weight (lb): 8 Infant Weight (oz): 10 Length (in): 21.00 Length (cm): 53.34 CORD INFORMATION BABY A No. Cord Vessels: 3 Nuchal Cord : Around Neck x1, Loose Cord Blood Taken: Yes-For Storage (Mom's Blood type +) Suction: None ASSESSMENT BABY A Complications: None Physical Findings at Delivery: Within Normal Limits Physical Findings- Other: nuchal cord x1 Skin to Skin: Yes Transferred To: Remains with Mother BABY B INFORMATION : N/A SIGNATURES Signature: with User ID: [email or web address]
[2018-09-21] MEDS: FERROUS SULFATE 325 MG TABLET PO SCH (10:55)
[2018-09-21] MEDS: FAMOTIDINE 20 MG TABLET PO SCH (10:55)
[2018-09-21] MEDS: PRENATAL VITAMIN W DHA CAPSULE PO SCH (10:55)
[2018-09-21] MEDS: SENNOSIDES/DOCUSATE 8.6-50 MG 1 EACH TABLET PO SCH (10:55)
[2018-09-21] MEDS: DOCUSATE SODIUM 100 MG CAPSULE PO SCH (10:55)
--- NOTE | 2018-09-21 10:55 | PDOC DISCHARGE SUMMARY ---
Final Diagnosis Discharge Date: 09/21/18 - Final Diagnosis (1) Anemia complicating , third trimester Is this a current diagnosis for this admission?: Yes (2) Vaginal delivery Is this a current diagnosis for this admission?: Yes (3) Morbid obesity Is this a current diagnosis for this admission?: Yes Discharge Data - Discharge Medication Prescriptions: Ibuprofen [Motrin 800 mg Tablet] 800 mg PO Q8HP PRN #60 tablet PRN Reason: Home Medications: Pnv No.103/Folic/Om3s/Fish Oil [ Gummies] 1 ea PO DAILY 05/16/18 Ferrous Sulfate [Feosol 325 mg Tablet] 325 mg PO BID tablet 09/21/18 Ibuprofen [Motrin 800 mg Tablet] 800 mg PO Q8HP PRN #60 tablet 09/21/18 Procedures: NST Intrapartum Procedure(s): Spontaneous Vaginal Delivery - Diagnosis Test Laboratory: Temp Pulse Resp BP Pulse Ox 98.2 F 81 20 113/58 L 99 09/21/18 08:46 09/21/18 08:46 09/21/18 08:46 09/21/18 08:46 09/21/18 08:46 09/17/18 09/17/18 09/20/18 19:55 20:31 06:21 RBC 3.75 2.86 L Hgb 9.7 L 7.5 L D Hct 28.9 L 22.1 L Urine Opiates Screen NEGATIVE - Discharge information/Instructions Discharge Activity: Balance Activity w/Rest, Pelvic Rest Discharge Diet: Regular Disposition: HOME, SELF-CARE Follow up with: [facility] in: 4, Weeks
== END 2018-09-21 14:44 | disposition home or self-care (01) | DRG 807 ==
LOC: LR 19:48 → 2S 09-19 04:08
PROVIDERS: ADMIT Obstetrics & Gynecology; ATTEND Obstetrics & Gynecology
PROC: 4A1HXCZ Monitoring of Products of Conception, Cardiac Rate, External Approach (ICD-10-PCS; 2018-09-17)
PROC: 3E033VJ Introduction of Other Hormone into Peripheral Vein, Percutaneous Approach (ICD-10-PCS; 2018-09-18)
PROC: 3E0P7VZ Introduction of Hormone into Female Reproductive, Via Natural or Artificial Opening (ICD-10-PCS; 2018-09-18)
PROC: 10E0XZZ Delivery of Products of Conception, External Approach (ICD-10-PCS; principal; 2018-09-19)
DX: O48.0 Post-term pregnancy (principal); Z37.0 Single live birth; O99.02 Anemia complicating childbirth; D64.9 Anemia, unspecified; O99.214 Obesity complicating childbirth; E66.01 Morbid (severe) obesity due to excess calories; O69.81X0 Labor and delivery complicated by cord around neck, without compression, not applicable or unspecified; Z87.891 Personal history of nicotine dependence; Z3A.41 41 weeks gestation of pregnancy
CPT/HCPCS: 36415; 80053; 80307; 85025; 85027; 86592; 86850; 86900; 86901; 94760; J1756; J2210; J2300; J2370; J2550; J2590; J3010; J3490

== ENCOUNTER → 2019-05-13 | Outpatient (CLI) | payer SELFPAY ==
--- NOTE | 2019-05-13 17:11 | RADIOLOGY REPORT (SQ) ---
EXAM DESCRIPTION: U/S [id number] TRNABD 1GES W/ODOP COMPLETED DATE/TIME: 05/13/2019 3:37 pm REASON FOR STUDY: (Z34.81)ENCOUNTER FOR SUPRVSN OF NORMAL , FIRST TRIMESTER Z34.81 ENCOUNT ER FOR SUPRVSN OF NORMAL , FIRST TRIM COMPARISON: 01/18/2018 TECHNIQUE: Transabdominal static and realtime grayscale images acquired of the pelvis. Additional se lected spectral and color Doppler images recorded. All images stored on PACs. bHCG: Not available. CLINICAL DATES: JUSTUS: 11/25/2019, EGA: 12 weeks 0 days LIMITATIONS: None. FINDINGS: FETUS: Single Living intrauterine . ULTRASOUND EGA: 10 weeks 1 day ULTRASOUND JUSTUS: 12/08/2019 EFW: Not applicable less than 20 weeks. CRL: 3.2 cm FHR: 173 beats per minute. SURVEY: No visualized anomalies. AMNIOTIC FLUID: Adequate amount. PLACENTA: Not yet developed due to early gestation. SUBCHORIONIC BLEED: No. SIZE OF BLEED: Not applicable. UTERUS: Uterus measures 12.8 x 8.2 x 6.1 cm. There is a 2.8 x 2.8 x 2.5 cm partially exophytic hypod ense mass along the fundus, most compatible with a fibroid. CERVICAL LENGTH: 2.8 cm Closed. RIGHT ADNEXA: Normal ovary with normal vascular flow. No adnexal free fluid. No adnexal masses. LEFT ADNEXA: Normal ovary with normal vascular flow. No adnexal free fluid. No adnexal masses. FREE FLUID: None. OTHER: No other significant finding. IMPRESSION: 1. Living intrauterine with estimated ultrasound gestational age of 10 weeks and 1 day. 2. Additional findings as described above. Trimester of : First trimester - 0 to 13 weeks. TECHNICAL DOCUMENTATION: JOB ID: [id number] [employer] All Rights Reserved rev-10/27 Reading location - IP/workstation name: [email or web address]
== END ==
LOC: RAD 14:57
PROVIDERS: ATTEND Midwife
DX: O34.11 Maternal care for benign tumor of corpus uteri, first trimester (principal); D25.9 Leiomyoma of uterus, unspecified; Z3A.10 10 weeks gestation of pregnancy
CPT/HCPCS: 76801

== ENCOUNTER 2019-05-27 13:10 | Emergency (ER) | payer SELFPAY ==
[2019-05-27 13:30] VITALS: BP 125/71
== END 2019-05-27 16:16 | disposition left against medical advice (07) ==
LOC: ER 13:10
DX: Z53.21 Procedure and treatment not carried out due to patient leaving prior to being seen by health care provider (principal)

== ENCOUNTER 2019-10-22 11:19 | Outpatient (CLI) | payer MEDICAID ==
[2019-10-22] MEDS ORDERED: RINGERS SOLUTION,LACTATED 1,000 ML IV ONE (12:00)
[2019-10-22] MEDS ORDERED: HYDROXYZINE PAMOATE 50 MG CAPSULE PO ONE (12:00)
[2019-10-22 12:23] LABS: URINE AMPHETAMINES SCREEN NEGATIVE; URINE BARBITURATES SCREEN NEGATIVE; URINE BENZODIAZEPINES SCREEN NEGATIVE; URINE COCAINE SCREEN NEGATIVE; URINE MARIJUANA (THC) SCREEN NEGATIVE; URINE METHADONE SCREEN NEGATIVE; URINE PHENCYCLIDINE SCREEN NEGATIVE
[2019-10-22 12:29] LABS: APPEARANCE,URINE SLIGHTLY HAZY; BILIRUBIN,URINE SMALL (NEGATIVE); COLOR,URINE YELLOW; GLUCOSE, URINE NEGATIVE (NEGATIVE); KETONES,URINE NEGATIVE (NEGATIVE); LEUKOCYTE ESTERASE,URINE LARGE (NEGATIVE); NITRITE,URINE NEGATIVE (NEGATIVE); PROTEIN,URINE 30 mg/dL (NEGATIVE); URINE SPECIFIC GRAVITY 1.022
[2019-10-22 12:30] LABS: ADD MANUAL MICROSCOPIC YES
[2019-10-22 12:31] LABS: RBC,URINE NONE SEEN /HPF; WBC,URINE 20-30 /HPF
[2019-10-22 12:32] LABS: AMORPHOUS SEDIMENT,UR 2+; BACTERIA,URINE TRACE /HPF
== END 2019-10-22 12:51 | disposition home or self-care (01) ==
LOC: LC 11:19
PROVIDERS: ATTEND Obstetrics & Gynecology
DX: O26.893 Other specified pregnancy related conditions, third trimester (principal); E86.0 Dehydration; Z3A.33 33 weeks gestation of pregnancy
CPT/HCPCS: 59025; 80307; 81001

== ENCOUNTER 2019-11-26 02:28 | Outpatient (CLI) | payer MEDICAID ==
--- NOTE | 2019-11-26 02:31 | Non Stress Test Report ---
Non Stress Test Datetime Report Generated by CPN: 11/26/2019 02:31 DEMOGRAPHIC Test Number: 1 EGA NST: 33.2 INDICATION Indication for Study (NST) Other: labor check VITAL SIGNS Temperature - NST: 98.1 Pulse - NST: 105 RESP - NST: 16 NBPSYS NST: 119 NBPDIA NST: 55 MONITORING Monitor Explained: Monitor Explained; Test Explained; Patient Verbalized Understanding Time on Monitor: 10/22/2019 11:37 Time off Monitor: 10/22/2019 12:42 NST Duration: 65 NST INTERVENTIONS NST Interventions: PO Hydration Physician Notified NST: N Hannah BABY A: [id number] BABY A Movement : Present Movement : Present Contraction Frequency : 0 FHR Baseline : 125 Accelerations : 15X15 Variability : Moderate 6-25bpm NST Review: Meets Criteria for Reactive NST NST Review and Verified By : KENYETTA VILLAFUERTE RN NSCorey Results: Reactive NST REPORT Report Trigger: Send Report
[2019-11-26 03:19] LABS: APPEARANCE,URINE TURBID; BILIRUBIN,URINE NEGATIVE (NEGATIVE); COLOR,URINE YELLOW; GLUCOSE, URINE NEGATIVE (NEGATIVE); KETONES,URINE NEGATIVE (NEGATIVE); LEUKOCYTE ESTERASE,URINE LARGE (NEGATIVE); NITRITE,URINE NEGATIVE (NEGATIVE); PROTEIN,URINE 30 mg/dL (NEGATIVE); URINE SPECIFIC GRAVITY 1.016; UROBILINOGEN,URINE NEGATIVE mg/dL (<2.0)
[2019-11-26 03:38] LABS: URINE AMPHETAMINES SCREEN NEGATIVE; URINE BARBITURATES SCREEN NEGATIVE; URINE BENZODIAZEPINES SCREEN NEGATIVE; URINE COCAINE SCREEN NEGATIVE; URINE MARIJUANA (THC) SCREEN NEGATIVE; URINE METHADONE SCREEN NEGATIVE; URINE PHENCYCLIDINE SCREEN NEGATIVE
== END 2019-11-26 03:55 | disposition home or self-care (01) ==
LOC: LC 02:28
PROVIDERS: ATTEND Obstetrics & Gynecology
DX: Z34.93 Encounter for supervision of normal pregnancy, unspecified, third trimester (principal)
CPT/HCPCS: 59025; 80307; 81005; 84112

== ENCOUNTER 2019-12-10 10:07 | Inpatient (IN) | payer MEDICAID ==
[2019-12-10] MEDS ORDERED: RINGERS SOLUTION,LACTATED 1,000 ML IV ONE (10:49)
[2019-12-10] MEDS ORDERED: LIDOCAINE 1% INJ-PF (10 MG/ML) 30 ML SDV ONE (11:19)
[2019-12-10] MEDS ORDERED: OXYTOCIN 10 UNIT/ML VIAL ONE (11:19)
[2019-12-10] MEDS ORDERED: MISOPROSTOL 0.2 MG TABLET ONE (11:19)
--- NOTE | 2019-12-10 11:19 | Admission Physical ---
Datetime Report Generated by CPN: 12/10/2019 11:19 CURRENT ADMISSION Chief Complaint: Uterine Contractions Admit Impression : Term, Intrauterine ; Active Labor Admit Plan: Admit to Unit; Initiate Labor Protocol ALLERGIES Medication Allergies: No Medication Allergies: No Known Allergies (12/10/2019) Latex: No Latex Allergies Food Allergies: none Environmental Allergies: none OBSTETRICAL HISTORY EDC: 12/08/2019 00:00 : 4 Para: 2 Term: 1 : 1 SAB: 2 IAB: 0 Ectopic: 0 Livin Cesareans: 0 VBACs: 0 Multiple Births: 0 Gestational Diabetes: No Rh Sensitization: No Incompetent Cervix: No KATHERINE: No Infertility: No ART Treatment: No Uterine Anomaly: No IUGR: No Hx Previous C/S: No Macrosomia: No Hx Loss/Stillborn: No PIH: No Hx : No Placenta Previa/Abruption: No Depression/PP Depression: No PTL/PROM: No Post Hemorrhage: No Current Procedures: Ultrasound; NST SEE RECORDS Alcohol: No Marijuana : No Cocaine: No Other Illicit Drugs: No Cigarettes: Never Smoker. [id number] MEDICAL HISTORY Diabetes: No Blood Transfusion: No Pulmonary Disease (Asthma, TB): No Breast Disease: No Hypertension: No Dowel Maker Surgery: No Heart Disease: No Hosp/Surgery: Yes Autoimmune Disorder: No Anesthetic Complications: No Kidney Disease: No Abnormal Pap Smear: No Neuro/Epilepsy: No Psychiatric Disorders: No Other Medical Diseases: No Hepatitis/Liver Disease: No Significant Family History: No Varicosities/Phlebitis: No Trauma/Violence : No Thyroid Dysfunction: No Medical History Comments: past INFECTIOUS HISTORY Gonorrhea: No Genital Herpes: No Chlamydia: Yes Tuberculosis: No Syphilis: No Hepatitis: No HIV/AIDS Exposure: No Rash or Viral Illness: No HPV: No Infectious History Comments: 2019-chlamydia PHYSICAL EXAM General: Normal HEENT: Normal Neurologic: Normal Thyroid: Deferred Heart: Normal Lungs: Normal Breast: Deferred Back: Normal Abdomen: Normal Genitourinary Exam: Normal Extremities: Normal DTRs: Deferred Pelvic Type: Adequate Physical Exam Comments: pelvis proven t o 8#10 Vital Signs: Reviewed; Within Normal Limits VAGINAL EXAM Dilatation: 7 Effacement: 80 Station: -1 Contraction Comments: Q2-3 mins MEMBRANES Membranes: Ruptured Amniotic Fluid Color: Meconium, Light FETUS A EGA: 40.2 Monitoring: External US FHR- Baseline: 125 Accelerations: 15X15 Decelerations: None FHR Category: Category I Estimated Weight (gm): 3900 Presentation: Vertex Presentation- Other: by sve Admit Comment: here for contractions. GBS negative. AROM for light mec, nursery notified. P:anticipate PLANS FOR LABOR AND DELIVERY Labor and Delivery: None Pain Management: None Feeding Preference: Formula Circumcision: Yes INFORMED CONSENT Assignment: Linda Cohen MD Signature: with User ID: [email or web address] lou : with User ID: [email or web address]
[2019-12-10] MEDS ORDERED: OXYTOCIN/0.9 % SODIUM CHLORIDE 30 UNIT/500 ML RTUINJ ONE (11:20)
[2019-12-10 11:35] LABS: APPEARANCE,URINE CLOUDY; BILIRUBIN,URINE NEGATIVE (NEGATIVE); COLOR,URINE YELLOW; GLUCOSE, URINE NEGATIVE (NEGATIVE); KETONES,URINE NEGATIVE (NEGATIVE); LEUKOCYTE ESTERASE,URINE MODERATE (NEGATIVE); NITRITE,URINE NEGATIVE (NEGATIVE); PROTEIN,URINE NEGATIVE (NEGATIVE); URINE SPECIFIC GRAVITY 1.017; UROBILINOGEN,URINE NEGATIVE mg/dL (<2.0)
[2019-12-10 11:51] LABS: URINE AMPHETAMINES SCREEN NEGATIVE; URINE BARBITURATES SCREEN NEGATIVE; URINE BENZODIAZEPINES SCREEN NEGATIVE; URINE COCAINE SCREEN NEGATIVE; URINE MARIJUANA (THC) SCREEN NEGATIVE; URINE METHADONE SCREEN NEGATIVE; URINE PHENCYCLIDINE SCREEN NEGATIVE
[2019-12-10 11:53] LABS: ABSOLUTE BASOPHILS # (AUTO) 0.1 10^3/uL (0.0-0.2); ABSOLUTE EOSINOPHILS # (AUTO) 0.2 10^3/uL (0.0-0.6); ABSOLUTE LYMPHOCYTES (AUTO) 1.4 10^3/uL (0.5-4.7); ABSOLUTE MONOCYTES (AUTO) 0.8 10^3/uL (0.1-1.4); ABSOLUTE NEUT (AUTO) 8.1 10^3/uL (1.7-8.2); BASOPHILS % (AUTO) 0.6 % (0-2); EOSINOPHILS % (AUTO) 1.9 % (0-6); HEMATOCRIT 30.6 % (36.0-47.0); HEMOGLOBIN 9.8 g/dL (12.0-15.5); LYMPHOCYTES % (AUTO) 13.3 % (13-45); MEAN CORPUSCULAR HEMOGLOBIN 22.3 pg (27.0-33.4); MEAN CORPUSCULAR HGB CONC 31.9 g/dL (32.0-36.0); MEAN CORPUSCULAR VOLUME 70 fl (80-97); MONOCYTES % (AUTO) 7.2 % (3-13); PLATELET COUNT 219 10^3/uL (150-450); RED BLOOD COUNT 4.38 10^6/uL (3.72-5.28); RED CELL DISTRIBUTION WIDTH 17.6 % (11.5-14.0); TOTAL CELLS COUNTED % (AUTO) 100 %; WHITE BLOOD COUNT 10.5 10^3/uL (4.0-10.5)
[2019-12-10] MEDS ORDERED: EPHEDRINE SULFATE INJ 50 MG/1 ML AMPULE ONE (14:40)
[2019-12-10] MEDS ORDERED: FENTANYL/BUPIVACAINE/NS/PF 300 MCG/150 ML RTUINJ EPI ONE (14:41)
[2019-12-10] MEDS ORDERED: BUPIVACAINE HCL 0.25 % INJ/PF (2.5 MG/1 ML) 30 ML VIAL ONE (14:41)
[2019-12-10] MEDS ORDERED: OXYTOCIN/0.9 % SODIUM CHLORIDE 30 UNIT/500 ML RTUINJ IV PRN (17:21)
[2019-12-10] MEDS ORDERED: DIPHENHYDRAMINE HCL 25 MG CAPSULE PO PRN (17:21)
[2019-12-10] MEDS ORDERED: MEASLES,MUMPS&RUBELLA VACC/PF 0.5 ML VIAL SUBCUT PRN (17:21)
[2019-12-10] MEDS ORDERED: ZOLPIDEM TARTRATE 5 MG TABLET PO PRN (17:21)
[2019-12-10] MEDS ORDERED: ACETAMINOPHEN 650 MG SUPP.RECT PR PRN (17:21)
[2019-12-10] MEDS ORDERED: NA PHOS,M-B/NA PHOS,DI-BA (ADULT) 133 ML ENEMA PR PRN (17:21)
[2019-12-10] MEDS ORDERED: PROMETHAZINE HCL 25 MG TABLET PO PRN (17:21)
[2019-12-10] MEDS ORDERED: MAGNESIUM HYDROXIDE SUSP 30 ML UDCUP PO PRN (17:21)
[2019-12-10] MEDS ORDERED: PSEUDOEPHEDRINE HCL 30 MG TABLET PO PRN (17:21)
[2019-12-10] MEDS ORDERED: GLYCERIN/WITCH HAZEL LEAF 1 EACH MED..WIPE TP PRN (17:21)
[2019-12-10] MEDS ORDERED: PROMETHAZINE HCL INJ 25 MG/1 ML VIAL IV PRN (17:21)
[2019-12-10] MEDS ORDERED: DIPH/PERTUSS(ACELL)/TETANUS VAC/PF 0.5 ML SYR (>=10YO) IM PRN (17:21)
[2019-12-10] MEDS ORDERED: BENZOCAINE/MENTHOL AEROSOL SPRAY 56 ML TOP PRN (17:21)
[2019-12-10] MEDS ORDERED: PROMETHAZINE HCL 25 MG SUPP.RECT PR PRN (17:21)
[2019-12-10] MEDS ORDERED: DIBUCAINE 1% OINTMENT 28 GM TP PRN (17:21)
[2019-12-10] MEDS ORDERED: ACETAMINOPHEN WITH CODEINE #3 TABLET PO PRN (17:21)
[2019-12-10] MEDS ORDERED: CEFAZOLIN 2 GM/D5W RTU 2 GM/50 ML RTUPB IV ONE ×2 (18:00→18:03)
[2019-12-10] MEDS ORDERED: FERROUS SULFATE 325 MG TABLET PO SCH (18:00)
[2019-12-10] MEDS ORDERED: IBUPROFEN 800 MG TABLET PO SCH (18:00)
[2019-12-10] MEDS ORDERED: ACETAMINOPHEN WITH CODEINE #3 TABLET ONE (18:16)
[2019-12-10] MEDS: ACETAMINOPHEN WITH CODEINE #3 TABLET PO PRN (18:18)
--- NOTE | 2019-12-10 18:45 | Delivery Summary ---
Del Sum A-C Datetime Report Generated by CPN: 12/10/2019 18:45 DELIVERY PERSONNEL DELIVERY PERSONNEL: [id number] Delivery Doctor:: Linda Cohen MD SAFETY AND HEALTH MANAGER:: Mike Sheehan CRNA Labor and Delivery Nurse:: Ana Pearl RNsales support technician Nurse:: Rossana Carey RN Nursery Nurse:: Jennie Gore RN Fireworks Display Specialist/RECRUITMENT ASSISTANT: Melissa Ruiz POLICE BOOKING OFFICER Additional Personnel: : Lucie Vaca RNC MATERNAL INFORMATION Delivery Anesthesia: Epidural Medications After Delivery: Pitocin 30 Units in 500ml NS/D5W Delivery QBL: 300 Maternal Complications: None Provider Comments: Called to room as patient had urge to push. She was complete and plus 3 station. Patient pushed through a few contractions and delivered a viable male in the vertex presentaion. CLARISA. After delivery of the head, the shoulders and rest of the body delivered easily. Cord clamping delayed for 30 seconds as was vigorous. Oral suctioning. skin to skin. Both Mother and stable LABOR SUMMARY EDC: 12/08/2019 00:00 No. Babies in Womb: 1 Attempted: No Labor Anesthesia: Epidural LABOR INFORMATION Reason for Induction: Not Applicable Onset of Labor: 12/10/2019 11:10 Complete Dilatation: 12/10/2019 16:55 Oxytocin: Augmentation Group B Beta Strep: negative Antibiotics # of Doses: 0 Antibiotics Time of Last Dose: n/a Name of Antibiotic Given: n/a Steroids Given: None Reason Steroids Not Administered: Not Applicable MEMBRANES Membranes Rupture Method: Artificial Rupture of Membranes: 12/10/2019 11:10 Length of Rupture (hr): 5.88 Amniotic Fluid Color: Light Meconium Amniotic Fluid Amount: Moderate Amniotic Fluid Odor: None STAGES OF LABOR Stage 1 hr: 5 Stage 1 min: 45 Stage 2 hr: 0 Stage 2 min: 8 Stage 3 hr: 0 Stage 3 min: 8 Total Time in Labor hr: 6 Total Time in Labor min: 1 VAGINAL DELIVERY Episiotomy: None Laceration #1: None Laceration Extension #1: N/A Laceration Repair: Not Applicable Sponge Count Correct: N/A Sharps Count Correct: N/A CSECTION DELIVERY Primary Indication: N/A Secondary Indication: N/A CSection Incidence: N/A Labor: N/A Elective: N/A CSection Incision: N/A BABY A INFORMATION Infant Delivery Date/Time: 12/10/2019 17:03 Method of Delivery: Vaginal Nurse Controlled Delivery: No Born in Route : No : N/A Forceps: N/A Vacuum Extraction: N/A Shoulder Dystocia : No PRESENTATION/POSITION BABY A Presentation: Cephalic Cephalic Presentation: Vertex Vertex Position: Right Occipital Anterior Breech Presentation: N/A PLACENTA INFORMATION BABY A Placenta Delivery Time : 12/10/2019 17:11 Placenta Method of Delivery: Spontaneous Placenta Status: Delivered SCORES BABY A Heart Rate 1 min: >100 bpm Resp Effort 1 min: Good Cry Reflex Irritability 1 min: Cough or Sneeze or Pulls Away Muscle Tone 1 min: Active Motion Color 1 min: Blue/Pale Resuscitation Effort 1 min: Tactile Stimulation SCORE 1 MIN: 8 Heart Rate 5 min: >100 bpm Resp Effort 5 min: Good Cry Reflex Irritability 5 min: Cough or Sneeze or Pulls Away Muscle Tone 5 min: Active Motion Color 5 min: Body Dean, Extremities Blue Resuscitation Effort 5 min: N/A SCORE 5 MIN: 9 Resuscitation Effort 10 min: N/A INFANT INFORMATION BABY A Gestational Age at Delivery: 40.2 Gestational Status: Full Term- 39- 40.6 Weeks Outcome : Liveborn Infant Condition : Stable Sex: Male IDENTIFICATION BABY A Verification Date/Time: 12/10/2019 17:29 ID Band Number: [id number] Mother's Name Verified: Yes RN Verifying Infant: SCamp, Rn MMobley, RN WEIGHT/LENGTH BABY A Infant Birthweight (gm): 4509 Weight (lb): 9 Weight (oz): 15 Length (in): 21.00 Length (cm): 53.34 CORD INFORMATION BABY A No. Cord Vessels: 3 Nuchal Cord : N/A Cord Blood Taken: Yes-For Eval (Mom's Blood Type - or O+) Infant Suction: None ASSESSMENT BABY A Complications: Meconium Physical Findings at Delivery: Caput Succedaneum; Molding of the Head Physical Findings- Other: See Nursery record for assessment Respirations: Appears Normal Skin to Skin: Yes Skin to Skin Time (min): 30 Tool Filer Hand/ALS Called : No Infant Care By: Omid Angel RN Transferred To: Remains with Mother BABY B INFORMATION : N/A SIGNATURES Signature: with User ID: Debbi [email or web address]/Amendment: Infant weight 9 lb 15 oz : with User ID: [email or web address] [email or web address]/Amendment: weight 9 lb 15 oz : I was personally available for consultation and serving as supervising physician for the MLP.
[2019-12-10] MEDS: IBUPROFEN 800 MG TABLET PO SCH (21:54)
[2019-12-10] MEDS: FAMOTIDINE 20 MG TABLET PO SCH (21:54)
[2019-12-11] MEDS: ACETAMINOPHEN WITH CODEINE #3 TABLET PO PRN ×2 (03:04→12:43)
[2019-12-11] MEDS: IBUPROFEN 800 MG TABLET PO SCH ×3 (05:09→22:19)
[2019-12-11 07:10] LABS: HEMATOCRIT 23.6 % (36.0-47.0); MEAN CORPUSCULAR HEMOGLOBIN 22.6 pg (27.0-33.4); MEAN CORPUSCULAR HGB CONC 32.6 g/dL (32.0-36.0); MEAN CORPUSCULAR VOLUME 69 fl (80-97); PLATELET COUNT 182 10^3/uL (150-450); RED BLOOD COUNT 3.42 10^6/uL (3.72-5.28); RED CELL DISTRIBUTION WIDTH 17.5 % (11.5-14.0); WHITE BLOOD COUNT 14.2 10^3/uL (4.0-10.5)
[2019-12-11 07:14] LABS: HEMOGLOBIN 7.7 g/dL (12.0-15.5)
[2019-12-11] MEDS: FERROUS SULFATE 325 MG TABLET PO SCH ×2 (08:05→17:52)
[2019-12-11] MEDS: PRENATAL VITAMIN W DHA CAPSULE PO SCH (09:22)
[2019-12-11] MEDS: FAMOTIDINE 20 MG TABLET PO SCH ×2 (09:22→22:45)
[2019-12-11] MEDS: DOCUSATE SODIUM 100 MG CAPSULE PO SCH ×2 (09:22→17:51)
[2019-12-11] MEDS: SENNOSIDES/DOCUSATE 8.6-50 MG 1 EACH TABLET PO SCH (09:23)
--- NOTE | 2019-12-11 11:34 | PDOC PROGRESS REPORT ---
Subjective-OB Progress Note for:: 12/11/19 Subjective: Doing well, asleep on rounds, hsb at BS holding baby, no concerns, bottle feeding Physical Exam (OB) Vital Signs: Temp Pulse Resp BP Pulse Ox 97.7 F 78 16 110/70 99 12/11/19 07:54 12/11/19 07:54 12/11/19 07:54 12/11/19 07:54 12/11/19 07:54 Intake & Output 12/10/19 12/11/19 12/12/19 06:59 06:59 06:59 Intake Total 400 Output Total 800 Balance -800 400 Weight 120.5 kg - PIH/Pre-Eclampsia Clonus: Negative Headache: Absent Epigastric Pain: No Visual Changes: No - Lochia Lochia Amount: Scant < 10 ml Lochia Color: Rubra/Red - Abdomen Description: Soft Hernia Present: No Fundal Description: Firm Fundal Height: u/u - u/2 Objective-Diagnostic Laboratory: 12/11/19 06:30 12/10/19 12/10/19 12/10/19 10:35 11:33 11:33 WBC 10.5 RBC 4.38 Hgb 9.8 L Hct 30.6 L MCV 70 L MCH 22.3 L MCHC 31.9 L RDW 17.6 H Plt Count 219 Seg Neutrophils % 77.0 Urine Color YELLOW Urine Appearance CLOUDY Urine pH 7.0 Ur Specific [place] 1.017 Urine Protein NEGATIVE Urine Glucose (UA) NEGATIVE Urine Ketones NEGATIVE Urine Blood MODERATE H Urine Nitrite NEGATIVE Ur Leukocyte Esterase MODERATE H Urine WBC (Auto) 3 Urine RBC (Auto) 1 Blood Type A POSITIVE Antibody Screen NEGATIVE 12/11/19 12/11/19 06:30 06:30 WBC 14.2 H RBC 3.42 L Hgb 7.7 L D Hct 23.6 L MCV 69 L MCH 22.6 L MCHC 32.6 RDW 17.5 H Plt Count 182 Seg Neutrophils % Urine Color Urine Appearance Urine pH Ur Specific [place] Urine Protein Urine Glucose (UA) Urine Ketones Urine Blood Urine Nitrite Ur Leukocyte Esterase Urine WBC (Auto) Urine RBC (Auto) Blood Type A POSITIVE Antibody Screen Assessment and Plan(PN) - Assessment and Plan (1) Short interval between pregnancies affecting in third trimester, antepartum Is this a current diagnosis for this admission?: Yes (2) Chlamydia infection affecting in second trimester Is this a current diagnosis for this admission?: Yes (3) Rh negative status during Qualifiers: Trimester: unspecified trimester Qualified Code(s): O26.899 - Other specified related conditions, unspecified trimester; Z67.91 - U nspecified blood type, Rh negative Is this a current diagnosis for this admission?: Yes (4) Vaginal delivery Is this a current diagnosis for this admission?: Yes - Time Spent with Patient Time with patient: Less than 15 minutes Medications reviewed and adjusted accordingly: Yes - Disposition Anticipated Discharge: Home Within: within 24 hours
[2019-12-11 13:15] LABS: RHOGAM DOSE INDICATED 0 VIAL(S)
[2019-12-12] MEDS: IBUPROFEN 800 MG TABLET PO SCH (05:47)
--- NOTE | 2019-12-12 09:46 | PDOC DISCHARGE SUMMARY ---
Impression - Admit/DC Date/PCP Admission Date/Primary Care Provider: 12/10/19 10:42 Discharge Date: 12/12/19 - PP Day #2, doing well, A+, Rubella immune bottlefeeding - Discharge Diagnosis (1) Chlamydia infection affecting in second trimester Is this a current diagnosis for this admission?: Yes (2) Rh negative status during Is this a current diagnosis for this admission?: Yes (3) Short interval between pregnancies affecting in third trimester, antepartum Is this a current diagnosis for this admission?: Yes (4) Anemia complicating , third trimester Is this a current diagnosis for this admission?: Yes (5) Vaginal delivery Is this a current diagnosis for this admission?: Yes (6) Morbid obesity Is this a current diagnosis for this admission?: Yes - Additional Information Resuscitation Status: Full Code Discharge Diet: As Tolerated, Regular Discharge Activity: Activity As Tolerated, No Lifting Over 10 Pounds, Pelvic Rest Prescriptions: Ferrous Sulfate [Feosol 325 mg Tablet] 325 mg PO BID #60 tablet Ibuprofen [Motrin 800 mg Tablet] 800 mg PO Q8 #60 tablet Home Medications: Pnv No.103/Folic/Om3s/Fish Oil [ Gummies] 1 ea PO DAILY 05/16/18 Ferrous Sulfate [Feosol 325 mg Tablet] 325 mg PO BID #60 tablet 12/12/19 Ibuprofen [Motrin 800 mg Tablet] 800 mg PO Q8 #60 tablet 12/12/19 HPI Reason(s) for Admission: Onset of Labor Procedures: Ultrasound Intrapartum Procedure(s): Spontaneous Vaginal Delivery Results Laboratory Results: WBC 14.2 10^3/uL (4.0-10.5) H 12/11/19 06:30 RBC 3.42 10^6/uL (3.72-5.28) L 12/11/19 06:30 Hgb 7.7 g/dL (12.0-15.5) L D 12/11/19 06:30 Hct 23.6 % (36.0-47.0) L 12/11/19 06:30 MCV 69 fl (80-97) L 12/11/19 06:30 MCH 22.6 pg (27.0-33.4) L 12/11/19 06:30 MCHC 32.6 g/dL (32.0-36.0) 12/11/19 06:30 RDW 17.5 % (11.5-14.0) H 12/11/19 06:30 Plt Count 182 10^3/uL (150-450) 12/11/19 06:30 Lymph % (Auto) 13.3 % (13-45) 12/10/19 11:33 Grand % (Auto) 7.2 % (3-13) 12/10/19 11:33 Eos % (Auto) 1.9 % (0-6) 12/10/19 11:33 Baso % (Auto) 0.6 % (0-2) 12/10/19 11:33 Absolute Neuts (auto) 8.1 10^3/uL (1.7-8.2) 12/10/19 11:33 Absolute Lymphs (auto) 1.4 10^3/uL (0.5-4.7) 12/10/19 11:33 Absolute Monos (auto) 0.8 10^3/uL (0.1-1.4) 12/10/19 11:33 Absolute Eos (auto) 0.2 10^3/uL (0.0-0.6) 12/10/19 11:33 Absolute Basos (auto) 0.1 10^3/uL (0.0-0.2) 12/10/19 11:33 Seg Neutrophils % 77.0 % (42-78) 12/10/19 11:33 Fetomaternal Hemorrhag 0 ML (0) 12/11/19 06:30 Kleihauer-Betke Stain NEGATIVE (NEGATIVE) 12/11/19 06:30 Urine Color YELLOW 12/10/19 10:35 Urine Appearance CLOUDY 12/10/19 10:35 Urine pH 7.0 (5.0-9.0) 12/10/19 10:35 Ur Specific [place] 1.017 12/10/19 10:35 Urine Protein NEGATIVE mg/dL (NEGATIVE) 12/10/19 10:35 Urine Glucose (UA) NEGATIVE mg/dL (NEGATIVE) 12/10/19 10:35 Urine Ketones NEGATIVE mg/dL (NEGATIVE) 12/10/19 10:35 Urine Blood MODERATE (NEGATIVE) H 12/10/19 10:35 Urine Nitrite NEGATIVE (NEGATIVE) 12/10/19 10:35 Urine Bilirubin NEGATIVE (NEGATIVE) 12/10/19 10:35 Urine Urobilinogen NEGATIVE mg/dL (<2.0) 12/10/19 10:35 Ur Leukocyte Esterase MODERATE (NEGATIVE) H 12/10/19 10:35 Urine WBC (Auto) 3 /HPF 12/10/19 10:35 Urine RBC (Auto) 1 /HPF 12/10/19 10:35 U Hyaline Cast (Auto) 1 /LPF 12/10/19 10:35 Urine Bacteria (Auto) TRACE /HPF 12/10/19 10:35 Squamous Epi Cells Auto 5 /HPF 12/10/19 10:35 Urine Mucus (Auto) OCC /LPF 12/10/19 10:35 Urine Ascorbic Acid NEGATIVE (NEGATIVE) 12/10/19 10:35 Urine Opiates Screen NEGATIVE 12/10/19 10:35 Urine Methadone Screen NEGATIVE 12/10/19 10:35 Ur Barbiturates Screen NEGATIVE 12/10/19 10:35 Ur Phencyclidine Scrn NEGATIVE 12/10/19 10:35 Ur Amphetamines Screen NEGATIVE 12/10/19 10:35 U Benzodiazepines Scrn NEGATIVE 12/10/19 10:35 Urine Cocaine Screen NEGATIVE 12/10/19 10:35 U Marijuana (THC) Screen NEGATIVE 12/10/19 10:35 RPR NONREACTIVE (NONREACTIVE) 12/10/19 11:33 Blood Type A POSITIVE 12/11/19 06:30 Blood Type Confirm A POSITIVE 12/10/19 18:39 Antibody Screen NEGATIVE 12/10/19 11:33 Screen POSITIVE 12/11/19 06:30 Plan Plan of Treatment: d/c home, f/up with [facility] in 4 wks for PP check
[2019-12-12] MEDS: FERROUS SULFATE 325 MG TABLET PO SCH (09:59)
[2019-12-12] MEDS: PRENATAL VITAMIN W DHA CAPSULE PO SCH (09:59)
[2019-12-12] MEDS: SENNOSIDES/DOCUSATE 8.6-50 MG 1 EACH TABLET PO SCH (09:59)
[2019-12-12] MEDS: DOCUSATE SODIUM 100 MG CAPSULE PO SCH (09:59)
[2019-12-12] MEDS: FAMOTIDINE 20 MG TABLET PO SCH (10:00)
[2019-12-12 10:46] VITALS: BP 119/51
== END 2019-12-12 13:30 | disposition home or self-care (01) | DRG 807 ==
LOC: LC 10:07 → LR 10:42 → 2S 20:20
PROVIDERS: ADMIT Obstetrics & Gynecology; ATTEND Obstetrics & Gynecology
PROC: 10E0XZZ Delivery of Products of Conception, External Approach (ICD-10-PCS; principal; 2019-12-10)
DX: O77.0 Labor and delivery complicated by meconium in amniotic fluid (principal); Z37.0 Single live birth; Z3A.40 40 weeks gestation of pregnancy
CPT/HCPCS: 1967; 36415; 80307; 81001; 85025; 85027; 85460; 85461; 86592; 86850; 86900; 86901; 94760; J0690; J2590; J2790; J3010; J3490

== ENCOUNTER → 2019-12-25 | Outpatient (CLI) | payer MEDICAID ==
[2019-12-25 15:56] VITALS: BP 111/58
--- NOTE | 2019-12-25 15:56 | ER RDC ASSESSMENT REPORT ---
Intake - In the Last 14 days Have you traveled outside [place]?: No Have you been in close contact with someone CONFIRMED: Yes Worked in Healthcare?: No - Symptoms Subjective Fever([place] feverish): No Chills: No Muscule Aches: No Runny Nose: No Sore Throat: No Cough (New or worsening chronic cough): No Shortness of breath: No Nausea or Vomiting: No Headache: No Abdominal Pain: No Diarrhea(3 or more loose stools in last 24 hours): No - Do you have any of the following Chronic lung disease: Asthma or emphysema or COPD: No Cystic Fibrosis: No Diabetes: No High Blood Pressure: No Cardiovascular Disease: No Chronic Kidney Disease: No Chronic Liver Disease: No Chronic blood disorder like Sickle Cell Disease: No Weak immune system due to disease or medication: No Neurologic condition that limits movement: No Developmental delay - Moderate to Severe: No Recent (within past 2 weeks) or current : Yes Morbid Obesity (>100 pounds over ideal weight): No - Objective Temperature: 98.2 F Pulse Rate: 76 Respiratory Rate: 17 Blood Pressure: 111/58 O2 Sat by Pulse Oximetry: 97 Objective: Given above, testing performed: covid Disposition: Home; Selfcare General - General Chief Complaint: Other Time Seen by Provider: 12/25/19 15:00 Mode of Arrival: Ambulatory Information source: Patient - HPI Notes: Patient presents to clinic for COVID-19 testing. They have no significant medical history. Patient is reporting exposure to COVID positive relative and would like to be tested. Patient is asymptomatic. They deny any cough, shortness of breath, fever, chills, muscle aches, rhinorrhea, sore throat, nausea or vomiting, headache, abdominal pain or diarrhea. Patient has no acute medical concerns - Related Data Allergies/Adverse Reactions: No Known Allergies Allergy (Verified 12/10/19 10:15) Past Medical History - General Information source: Patient - Social History Smoking Status: Former Smoker Family History: Reviewed & Not Pertinent, Malignancy - Past Medical History Cardiac Medical History: Reports: None Pulmonary Medical History: Reports: None Denies: Hx Asthma, Hx Bronchitis, Hx COPD, Hx Pneumonia EENT Medical History: Reports: None Neurological Medical History: Reports: None. Denies: Hx Cerebrovascular Accident, Hx Migraine, Hx Seizures Endocrine Medical History: Reports: None. Denies: Hx Diabetes Mellitus Type 1, Hx Diabetes Mellitus Type 2, Hx Graves' Disease Renal/ Medical History: Reports: None. Denies: Hx End Stage Renal Disease, Hx Kidney Stones, Hx Ovarian Cysts, Hx Peritoneal Dialysis, Hx Pelvic Inflammatory Disease Malignancy Medical History: Reports: None. Denies: Hx Breast Cancer, Hx Cervical Cancer, Hx Leukemia, Hx Liver Cancer, Hx Lung Cancer GI Medical History: Reports: None. Denies: Hx Diverticulitis, Hx Gastritis, Hx Gastroesophageal Reflux Disease, Hx Hepatitis, Hx Hiatal Hernia Musculoskeletal Medical History: Reports None, Denies Hx Multiple Sclerosis, Denies Hx Muscle Weakness, Denies Hx Musculoskeletal Deformity Skin Medical History: Reports None Psychiatric Medical History: Reports: None Denies: Hx Attention Deficit Hyperactivity Disorder, Hx Bipolar Disorder, Hx Borderline Personality Disorder, Hx Depression Traumatic Medical History: Reports: None Infectious Medical History: Reports: None. Denies: Hx Hepatitis Past Surgical History: Reports: Hx Oral Surgery - wisdom, Hx Tonsillectomy Physical Exam - General General appearance: Appears well, Alert In distress: None Notes: PHYSICAL EXAMINATION: GENERAL: Well-appearing and in no acute distress. HEAD: Atraumatic, normocephalic. EYES: sclera anicteric, conjunctiva are normal. ENT: nares patent. Moist mucous membranes. NECK: Normal range of motion, supple without lymphadenopathy LUNGS: CTAB and equal. No wheezes rales or rhonchi. HEART: Regular rate and rhythm without murmurs ABDOMEN: Soft, nontender, normal bowel sounds, no guarding. EXTREMITIES: Normal range of motion, no pitting edema. No cyanosis. NEUROLOGICAL: Cranial nerves grossly intact. Normal speech. PSYCH: Normal mood, normal affect. SKIN: Warm, Dry, normal turgor, no rashes or lesions noted Patient Education/Counseling Counseling/Education: Patient presents for COVID 19 testing after exposure to relative who is confirmed positive for COVID 19. Patient remains asymptomatic at this time. Patient does not have emergency worrying symptoms such as difficulty breathing, shortness of breath, chest pain, pressure, confusion or cyanosis. Patient appears suitable for discharge as vital signs are stable and patient is nontoxic in appearance. Good return precautions have been discussed with patient, patient verbalized understanding and is agreeable with discharge plan of care at this time. Guidance for worsening S/SX: As a person under investigation for Covid 19, the [facility], division of public health advises you to adhere to the following guidance until your test results are reported to you. If your test result is positive, you will receive additional information from your provider and your local health department at that time. Remain at home until you are cleared by the health provider or public health authorities. Keep a log of visitors to your home, notify any visitors to your home of your isolation status. If you plan to move to a new address or leave the county, notify the local health department in your County. Call your doctor or seek care if you have an urgent medical need. Before seeking medical care, call ahead to get instructions from the provider before arriving at the medical office clinic or hospital. Notify them that you are being tested for the virus that causes Covid 19 so that arrangements can be made, as necessary, to prevent transmission to others in the healthcare setting. Next, notify the local health department in your county. If a medical emergency arises and you need to call 911, inform the first responders that you are being tested for the virus that causes Covid 19. Next, notify the local health department in your county. RDC Discharge - Discharge Clinical Impression: Encounter for screening laboratory testing for COVID-19 virus in asymptomatic patient Condition: Good Disposition: Home; Selfcare
== END ==
LOC: RDC 13:56
PROVIDERS: ATTEND Registered Nurse
DX: Z20.828 Contact with and (suspected) exposure to other viral communicable diseases (principal); Z87.891 Personal history of nicotine dependence
CPT/HCPCS: 87635; C9803; 99201; 99211